=== PATIENT | female | born 1975 | race Caucasian/White ===

== ENCOUNTER 2020-08-15 09:40 | Outpatient (REF) | payer OTHER, SELFPAY ==
[2020-08-17 21:02] LABS: HPV mRNA E6/E7 rflx Not Detected (Not Detected)
== END 2020-08-15 09:41 | disposition home or self-care (01) ==
LOC: HO.LAB 09:40
PROVIDERS: PCP Family Medicine; Visit Provider Advanced Practice Midwife
DX: Z01.419 Encounter for gynecological examination (general) (routine) without abnormal findings (principal); Z11.51 Encounter for screening for human papillomavirus (HPV)
CPT/HCPCS: 36415; 87624; 88142

== ENCOUNTER 2020-10-21 08:58 | Outpatient (REF) | payer OTHER, SELFPAY | END 2020-10-21 08:59 | disposition home or self-care (01) | LOC: HO.MAMMO 08:58 | PROVIDERS: Visit Provider Advanced Practice Midwife | DX: Z13.89 Encounter for screening for other disorder (principal) ==

== ENCOUNTER 2020-11-10 13:22 | Outpatient (REF) | payer OTHER, SELFPAY ==
--- NOTE | ~2020-11-10 | MM_ITS ---
EXAMINATION: MM DIAGNOSTIC DIGITAL BREAST TOMOSYNTHESIS, BILATERAL CLINICAL INFORMATION: Probable benign calcifications posterior 1:00 right breast noted on outside imaging. Due for yearly. No known family history breast cancer. The lifetime risk of breast cancer based on the Tyrer-Cuzick Model is 7%. COMPARISON: Outside mammography 02/05/2020, 07/31/2019, 07/24/2019 (BI-RADS 0), [facility]. TECHNIQUE: Digital breast tomosynthesis is performed in both the craniocaudal and mediolateral oblique views along with computer-aided detection (CAD). Synthesized 2D images are generated from the tomosynthesis. Additional views are obtained: Right CC, magnification right CC x2, magnification right LM x2, magnification left CC, magnification left ML. FINDINGS: There are scattered areas of fibroglandular density (ACR BI-RADS breast composition Category b). Parenchymal pattern is similar to prior outside exams. There is no interval mass or developing density or architectural abnormality. The axilla and skin contours are unremarkable. There are a few scattered incidental round calcifications upper outer left breast. The right breast calcifications for follow-up posterior 1:00 position again show oval appearance on CC view and some with early layering on LM view. No increasing calcifications or pleomorphic types or ductal distribution. They are tightly grouped. Right breast calcifications will be reassessed again in 6 months. Results are provided to the patient at time of visit by the technologist. MM/MM tomosynthesis diagnostic BI IMPRESSION: 1. Right: Stable probable benign tight group calcifications posterior 1:00 position. 2. Left: No mammographic evidence of malignancy. ASSESSMENT: BI-RADS 3: Probably Benign RECOMMENDATION: Diagnostic right mammography in 6 months. This patient's information was entered into a reminder system with a target due date for their next mammogram.
== END 2020-11-10 13:23 | disposition home or self-care (01) ==
LOC: HO.MAMMO 13:22
PROVIDERS: Visit Provider Advanced Practice Midwife
DX: R92.1 Mammographic calcification found on diagnostic imaging of breast (principal)
CPT/HCPCS: 77062; 77066

== ENCOUNTER 2021-06-09 08:51 | Outpatient (REF) | payer OTHER, SELFPAY ==
--- NOTE | ~2021-06-09 | MM_ITS ---
EXAMINATION: MM DIAGNOSTIC DIGITAL BREAST TOMOSYNTHESIS, RIGHT CLINICAL INFORMATION: Follow-up probable benign tightly grouped calcifications posterior 1:00 right breast initially noted on outside imaging. The lifetime risk of breast cancer based on the Tyrer-Cuzick Model is 7%. COMPARISON: Mammography: 11/10/2020; outside mammography from [email or web address] dated 02/05/2020, 07/31/2019, 07/24/2019 (BI-RADS 0). TECHNIQUE: Digital breast tomosynthesis is performed in both the craniocaudal and mediolateral oblique views along with computer-aided detection (CAD). Synthesized 2D images are generated from the tomosynthesis. Additional right CC, magnification CC, and magnification LM views are obtained. FINDINGS: There are scattered areas of fibroglandular density (ACR BI-RADS breast composition Category b). Calcifications for follow-up posterior 1:00 position are tightly grouped and appear similar to prior diagnostic exam. There may be some layering of some calcifications on the LM view. Calcifications will be reassessed again at time of annual bilateral mammography. Remainder right breast shows no interval mass or architectural abnormality or developing density. The axilla and skin contours are unremarkable. Results are provided to the patient at time of visit by the technologist. MM/MM tomosynthesis diagnostic RT IMPRESSION: No significant change tightly grouped calcifications posterior 1:00 position. ASSESSMENT: BI-RADS 3: Probably Benign RECOMMENDATION: Diagnostic mammography at time of annual bilateral mammography, due in 6 months. This patient's information was entered into a reminder system with a target due date for their next mammogram.
== END 2021-06-09 08:52 | disposition home or self-care (01) ==
LOC: HO.MAMMO 08:51
PROVIDERS: PCP Family Medicine; Visit Provider Advanced Practice Midwife
DX: R92.1 Mammographic calcification found on diagnostic imaging of breast (principal)
CPT/HCPCS: 77061; 77065

== ENCOUNTER 2021-08-17 10:33 | Outpatient (REF) | payer OTHER, SELFPAY ==
[2021-08-18 10:30] LABS: CT PCR NOT DETECTED (Not Detect.); NG PCR NOT DETECTED (Not Detect.)
== END 2021-08-17 10:34 | disposition home or self-care (01) ==
LOC: HO.LAB 10:33
PROVIDERS: Visit Provider Advanced Practice Midwife
DX: Z01.419 Encounter for gynecological examination (general) (routine) without abnormal findings (principal); Z20.2 Contact with and (suspected) exposure to infections with a predominantly sexual mode of transmission
CPT/HCPCS: 87491; 87591

== ENCOUNTER 2022-02-07 09:30 | Outpatient (RCR) | payer OTHER, SELFPAY ==
[2022-02-08 08:22] VITALS: BP 102/65; PULSE 89
== END 2022-02-21 15:23 | disposition home or self-care (01) ==
LOC: HO.PT 09:30
PROVIDERS: PCP Family Medicine; Visit Provider Family Medicine
DX: H81.10 Benign paroxysmal vertigo, unspecified ear (principal)
CPT/HCPCS: 97162

== ENCOUNTER 2022-03-09 16:31 | Outpatient (REF) | payer MEDICARE, SELFPAY ==
--- NOTE | ~2022-03-09 | MR_ITS ---
EXAMINATION: MR BRAIN WITHOUT AND WITH CONTRAST CLINICAL INFORMATION: 47-year-old with self-reported dizziness and forgetfulness with syncope, collapse and facial tingling. COMPARISON: None. TECHNIQUE: Multiplanar, multisequence MRI of the brain was obtained before and after the intravenous administration of 6.5 mL Gadavist. FINDINGS: Brain Volume: Within normal limits within the limitations of qualitative assessment. Structural: 5 mm benign pineal cyst incidentally noted. Brain and Meninges: DWI sequence demonstrates no restricted diffusion to suggest acute or subacute cerebral ischemia. Gradient refocused imaging demonstrates no abnormal magnetic susceptibility artifact to suggest hemorrhage, hemosiderin staining or abnormal mineralization. Nino-white matter differentiation is intact. The brain is normal in morphology. Some faint punctate FLAIR signal hyperintensities are seen in the subcortical frontal white matter bilaterally which are nonspecific in addition to a 4 mm nonenhancing T2 hyperintense focus seen within the right insular cortex adjacent to the external capsule, also a nonspecific finding. Remainder the brain is normal in signal intensity. No mass lesions, pathologic intracranial enhancement, extra-axial fluid collection, space-occupying process or mass effect are identified. Ventricles and Subarachnoid Spaces: The ventricular system and subarachnoid spaces are within normal limits without hydrocephalus. Orbital Structures: Bilateral proptosis is noted, which is nonspecific. Vascular: Signal voids are noted in the visualized major intracranial vessels. Osseous Structures, Sinuses/Mastoids, Extracranial Soft Tissues: Bony structures appear intact. Nasal septal deviation to the left is noted. Incidental note is made of a 2.0 x 0.7 cm cystic focus within the cervical spinal cord at the C4 level with no definite abnormal enhancement, which is a nonspecific finding and warrants further assessment with dedicated MRI of the cervical spine without and with contrast. This has the appearance of a focal syrinx and appears to expand the spinal cord. MR/MR head/brain wo/w con IMPRESSION: 1. Scattered nonenhancing subcortical white matter T2 hyperintensities in the frontal lobes bilaterally and a nonspecific 4 mm nonenhancing T2 hyperintensity in the right insular cortex, also a nonspecific finding. Given the lack of enhancement, neoplastic disease is considered unlikely and clinical follow-up is recommended. 2. Bilateral proptosis incidentally noted. Suggest correlation with ophthalmologic examination. Incidental 5 mm benign pineal cyst. 3. A 2.0 x 0.7 cm cystic lesion or focus of syringomyelia in the spinal cord at the C4 level with no definite abnormal enhancement within the limitations of this exam. Recommend dedicated MRI of the cervical spine without and with contrast to further assess this.
== END 2022-03-09 16:32 | disposition home or self-care (01) ==
LOC: HO.MRI 16:31
PROVIDERS: Visit Provider Family Medicine
DX: R55 Syncope and collapse (principal); R41.3 Other amnesia
CPT/HCPCS: 70553; A9585

== ENCOUNTER 2022-03-26 16:29 | Outpatient (REF) | payer MEDICARE, SELFPAY ==
--- NOTE | ~2022-03-26 | MR_ITS ---
EXAMINATION: MR CERVICAL SPINE WITHOUT AND WITH CONTRAST CLINICAL INFORMATION: Syringomyelia of the neck. COMPARISON: No relevant prior imaging. TECHNIQUE: Multiplanar MR imaging of the cervical spine was performed without and with contrast. A total of 6.5 mL Gadavist was utilized for this examination. FINDINGS: There is a well marginated ovoid focus of intramedullary fluid signal within the upper cervical spinal cord centered at the level of C4 measuring up to 0.8 cm in maximal diameter and 2.1 cm in maximal length. No associated pathological intramedullary enhancement is demonstrated on postcontrast images. 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 The remainder of the visualized cord signal intensity is normal. The cervicomedullary junction and limited visualization of intracranial anatomy reveals no abnormal finding. Axilla condyles and lateral C1 masses are intact. Atlantodental joint and both C1-C2 to facets are unremarkable. At C2-C3 the annular contour is normal. No canal or neuroforaminal compromise. At C3-C4 the annular contour is normal. No canal or neuroforaminal compromise. At C4-C5 the annular contour is normal. No canal or neuroforaminal compromise. At C5-C6 there is a slightly bulging disc. No canal stenosis. No substantial neuroforaminal encroachment. At C6-C7 there is a slightly bulging disc. No canal stenosis. No substantial neuroforaminal encroachment. At C7-T1 the annular contour is normal. No canal stenosis. No neuroforaminal encroachment. Visualized soft tissues of the neck are normal. Vascular flow voids are maintained. MR/MR cervical spine wo/w con IMPRESSION: There is a well marginated nonenhancing ovoid intramedullary cystic lesion within the cervical spinal cord consistent with a syrinx that measures up to 2.1 cm in maximal length and 0.8 cm in diameter.
== END 2022-03-26 16:30 | disposition home or self-care (01) ==
LOC: HO.MRI 16:29
PROVIDERS: Visit Provider Family Medicine
DX: G95.0 Syringomyelia and syringobulbia (principal)
CPT/HCPCS: 72156; A9585

== ENCOUNTER 2022-04-15 16:59 | Emergency (ER) | payer MEDICARE, SELFPAY ==
--- NOTE | ~2022-04-15 | XR_ITS ---
EXAMINATION: XR LUMBOSACRAL SPINE CLINICAL INFORMATION: Low back pain COMPARISON: None TECHNIQUE: Three views of the lumbosacral spine. FINDINGS: The vertebral bodies and posterior elements are normal. The disc spaces are preserved and the vertebral alignment is normal. IUD seen in the pelvis. Cholecystectomy clips in the right upper quadrant. XR/XR lumbar spine 2-3V IMPRESSION: No acute osseous abnormality of the lumbar spine.
--- NOTE | 2022-04-15 17:44 | ED_ITS ---
HPI - General Adult General Chief complaint: Back Pain/Injury Stated complaint: pain into legs Time Seen by Provider: 04/15/22 19:28 Source: patient Mode of arrival: ambulatory Limitations: no limitations History of Present Illness HPI narrative: Patient is a 47 year old assigned female at with a history of cervical spine impingement presenting to the emergency department today with low back percy n that radiates into the legs. Patient states that over the last few days she has felt worsening low back pain that radiates into her legs. Patient states that she has an appointment with a neurosurgeon for her neck in a few days. Patient denies any dizziness, lightheadedness, abdominal pain, nausea, vomiting, fever, chills, blurry vision, double vision, loss of vision, chest pain, difficulty breathing, shortness of breath, night sweats, pain with urination, increased urinary frequency, increased urinary urgency, blood in her urine or stool, syncope or a near syncopal episode, recent trauma or falls, bowel incontinence, bladder incontinence, bowel retention, bladder retention, or any other complaints at this time. Onset (ago): day(s) Location: back Radiation: extremity Severity scale (1-10): 3 Quality: aching and dull Pain Consistency: constant Relieving factors: none Exacerbating factors: none Associated symptoms: denies other symptoms Treatments prior to arrival: none Related Data Home Medications Medication Instructions Recorded Confirmed fluoxetine 40 mg capsule mg PO 08/15/20 lurasidone 80 mg tablet 80 mg PO BEDTIME 08/15/20 prazosin 5 mg capsule 5 mg PO BEDTIME 08/15/20 Previous Rx's Medication Instructions Recorded cyclobenzaprine 5 mg tablet 5 mg PO TID PRN muscle spasm 7 04/15/22 days #21 tabs prednisone 20 mg tablet 20 mg PO DAILY 7 days #7 tabs 04/15/22 Allergies Allergy/AdvReac Type Severity Reaction Status Date / Time No Known Allergies Allergy Verified 08/17/21 10:39 [No Known Allergies*] Review of Systems Constitutional: Constitutional: Reports no additional constitutional complaints, Denies chills, Denies fever(s) and Denies night sweats Eyes: Eyes: Reports no additional eye complaints, Denies blurry vision, Denies change in vision, Denies diplopia, Denies eye discharge, Denies loss of vision and Denies eye pain ENT: Denies dizziness Cardiovascular: Cardiovascular: Reports no additional cardiovascular complaints, Denies chest pain, Denies lightheadedness, Denies Loss of Consciousness and Denies dyspnea Respiratory: Respiratory: Reports no additional respiratory complaints and Denies dyspnea Gastrointestinal: Gastrointestinal: Reports no additional gastrointestinal complaints, Denies abdominal pain, Denies melena, Denies hematochezia, Denies change in bowel habits and Denies change in stool character Genitourinary: Genitourinary: Denies hematuria, Denies urinary frequency, Denies dysuria, Denies urinary incontinence, Denies urinary hesitancy and Denies urinary urgency Musculoskeletal: Musculoskeletal: Reports no additional musculoskeletal complaints, Reports back pain, Denies numbness and Denies tingling Neurologic: Denies dizziness, Denies loss of vision, Denies numbness and Denies tingling Psychiatric: Psychiatric: Reports no additional psychiatric complaints Endocrine: Endocrine: Reports no additional endocrine complaints Hematologic/Lymphatic: Hematologic/Lymphatic: Reports no additional hematologic/lymphatic complaints Allergic/Immunologic: Allergic/Immunologic: Reports no additional allergic/immunologic complaints PMFSH Past Medical History Attestation statement: The following information was validated with the patient. Source: old records reviewed Medical History Bipolar 1 disorder History of depression Night terror Post traumatic stress disorder (PTSD) Surgical History H/O ovarian cystectomy Hx of cholecystectomy Social History Social History Alcohol intake: never Patient Tobacco Use Status: Never used Tobacco Advance Directives: No Advance Directives Information Provided: No Physical Exam ED Vital Signs: Vital Signs - 24 hr 04/15/22 17:46 Temperature 97.5 F Pulse Rate 85 Respiratory Rate 18 Blood Pressure 131/61 Pulse Oximetry 98 Oxygen Delivery Method Room Air BMI result Body Mass Index 25.6 Const General: cooperative, no acute distress, alert and awake Nutritional Appearance: well nourished Orientation/consciousness: patient oriented x3 Limitations: no limitations HENMT Head: Yes normal to inspection and Yes atraumatic Ears: hearing grossly normal bilaterally and external ears normal General nose exam: Normal external nose present, no nasal discharge noted and no epistaxis Face and sinus: Yes normal facial exam, No abrasion and No laceration Mouth: Normal oral and palatal mucosa present, no drooling and no muffled voice Eyes General: appearance normal, both eyes and all related structures Periorbital: periorbital findings normal Eyelids: Yes eyelids normal Conjunctivae: conjunctivae normal Pupils: Equal, round and reactive pupils present EOM: EOMs intact bilaterally Neck Neck: Yes normal visual inspection, Yes full ROM and Yes no lymphadenopathy Chest Chest palpation & inspection: normal inspection of the chest Resp Effort & Inspection: normal respiratory effort and able to speak in complete sentences Auscultation: clear to auscultation bilaterally Cardio Rate: regular rate Rhythm: regular rhythm GI Inspection: Yes normal to inspection General: Yes no CVA tenderness Back/Spine/Pelvis Back: no CVA tenderness Cervical Spine: normal cervical lordosis and cervical ROM normal Thoracic/Lumbar Spine: thoracic and lumbar spine normal to inspection Pelvis: no pain with anterior-posterior compression Neuro General: patient oriented x3 and moves all extremities Cranial nerves: Yes Equal, round and reactive pupils present Cognition (Neuro): normal cognition Motor exam (neuro): 5/5 motor strength present throughout Sensory Exam: Normal double simultaneous stimulation for sensation Coordination: [id number] test normal Extrem General: Yes normal to inspection, Yes full ROM and Yes capillary refill normal Psych Appearance: grossly normal Mental Status: mental status grossly normal Affect: normal affect Attitude: cooperative Thought process: Normal thought process present Thought content: Normal thought content present Insight: Good insight present (Psych) Course Course Course Narrative: RME performed by Tammi Jolly PA-C. Patient is a 47 year old female presenting to the emergency department with low back pain that radiates into her legs. Patient states that she has a neurosurgery appointment for C-Spine issues but has never had any evaluation for low back pain. Lumbar XR ordered. Medications Administered Discontinued Medications Generic Name Dose Route Start Last Admin Trade Name Freq PRN Reason Stop Dose Admin Cyclobenzaprine HCl 5 mg 04/15/22 19:28 04/15/22 19:32 Cyclobenzaprine Hcl 5 Mg Tablet PO 04/15/22 19:29 5 mg ONCE ONE Administration Ketorolac Tromethamine 15 mg 04/15/22 19:28 04/15/22 19:32 Ketorolac Tromethamine 15 Mg/Ml Vial IM 04/15/22 19:29 15 mg ONCE ONE Administration Medical Decision Making [facility] Narrative Medical decision making narrative: Patient is a 47 year old assigned female at with a history of cervical impingement presenting to the emergency department today with low back pain. Patient's physical exam was unremarkable. Patient's lumbar spine x-ray showed no acute process. I explained my physical exam findings as well as all test results to the patient. I answered all questions asked by the patient. Patient received PO Flexeril and IM Toradol which she stated helped her symptoms significantly. I stressed the importance of the patient taking her medication as prescribed. I stressed the importance of the patient following up with her primary care provider and a neurosurgeon. I stressed the importance of the patient returning to the emergency department immediately if her symptoms were to worsen or if she were to develop any dizziness, shortness of breath, difficulty breathing, chest pain, blurry vision, loss of vision, nausea, vomiting, abdominal pain, fever, chills, back pain, or any other complaints. Patient verbalized agreement and understanding with this treatment plan and discharge. Medical Records Medical records reviewed: Yes I reviewed the patient's medical records. Imaging Data Lumbar x-ray: Attestation: I personally reviewed and interpreted this imaging study as follows: My impression: No acute process. Radiologist's impression: EXAMINATION: XR LUMBOSACRAL SPINE CLINICAL INFORMATION: Low back pain COMPARISON: None TECHNIQUE: Three views of the lumbosacral spine. FINDINGS: The vertebral bodies and posterior elements are normal. The disc spaces are preserved and the vertebral alignment is normal. IUD seen in the pelvis. Cholecystectomy clips in the right upper quadrant. XR/XR lumbar spine 2-3V IMPRESSION: No acute osseous abnormality of the lumbar spine. Dictated By: Emiliano Kendrick MD Signed By: Electronically signed by Emiliano Kendrick MD 04/15/22 2115 Discharge Plan Discharge Clinical Impression: Low back pain Patient Disposition: Home, Self-Care Instructions: Back Pain (ED) Additional Instructions: Follow up with your primary care provider and your neurosurgeon. Return to the emergency department immediately if your symptoms worsen or if you develop any dizziness, shortness of breath, difficulty breathing, chest pain, blurry vision, loss of vision, nausea, vomiting, abdominal pain, fever, chills, back pain, or any other complaints. Prescriptions: New cyclobenzaprine 5 mg tablet 5 mg PO TID PRN (Reason: muscle spasm) 7 Days Qty: 21 0RF prednisone 20 mg tablet 20 mg PO DAILY 7 Days Qty: 7 0RF No Action Latuda 80 mg tablet 80 mg PO BEDTIME fluoxetine 40 mg capsule PO prazosin 5 mg capsule 5 mg PO BEDTIME Referrals: [facility] [place]] (Call to establish and follow up with a primary care provider. If you already have a primary care provider, please follow up with them. ) [facility] [Provider Group] (Call to establish and follow up with a primary care provider. If you already have a primary care provider, please follow up with them. ) [facility] [Provider Group] (Call to establish and follow up with a primary care provider. If you already have a primary care provider, please follow up with them. ) Interventions: ED Discharge Assessment Last Done: 04/15/22 19:41 Discharge Date/Time: 04/15/22 19:56 Print Language: Hungarian
[2022-04-15 17:46] VITALS: BP 131/61; PULSE 85; RESP 18; TEMP 36.4; O2SAT 98; BMI 25.6
[2022-04-15] MEDS: Cyclobenzaprine HCl 5 MG TABLET PO (19:32)
[2022-04-15] MEDS: Ketorolac Tromethamine 15 MG/ML VIAL IM (19:32)
== END 2022-04-15 19:56 | disposition home or self-care (01) ==
PROVIDERS: Emergency Provider Internal Medicine
DX: M54.50 Low back pain, unspecified (principal)
CPT/HCPCS: 72100; 96372; 99282; 99283; 99284; J1885

== ENCOUNTER 2022-05-01 18:52 | Outpatient (REF) | payer MEDICARE, SELFPAY ==
--- NOTE | ~2022-05-01 | MR_ITS ---
EXAMINATION: MR LUMBAR SPINE WITHOUT CONTRAST CLINICAL INFORMATION: Syrinx. COMPARISON: Lumbar spine radiographs 04/15/2022. TECHNIQUE: MRI of the lumbar spine was obtained using routine sequences without contrast. FINDINGS: Alignment is normal. Vertebral body heights are preserved. No acute bone marrow signal changes. There is slight loss of intervertebral height and T2 signal intensity at multiple levels related to disc degeneration. The tip of the conus medullaris is located at L2. No mass effect on the conus. Visualized distal cord signal intensity is normal. At L1-L2 there is a slightly bulging disc. No canal stenosis. No mass effect on the traversing or foraminal nerve roots. At L2-L3 the annular contour is normal. No canal or neuroforaminal compromise. At L3-L4 the annular contour is normal. No canal or neuroforaminal compromise. At L4-L5 there is a slightly bulging disc. Bilateral facet degenerative change. No canal stenosis. No mass effect on the traversing or foraminal nerve roots. At L5-S1 there is a slightly bulging disc. Bilateral facet degenerative change. No canal stenosis. No mass effect on the traversing or foraminal nerve roots. Limited visualization of the retroperitoneal anatomy reveals no abnormal finding. Psoas and paraspinal superficial symmetric. MR/MR lumbar spine wo con IMPRESSION: There is disc degeneration at multiple levels within the lumbar spine. No canal stenosis. No mass effect on the traversing or foraminal nerve roots. Visualized distal cord signal intensity is normal.
== END 2022-05-01 18:53 | disposition home or self-care (01) ==
LOC: HO.MRI 18:52
PROVIDERS: Visit Provider Neurological Surgery
DX: G95.0 Syringomyelia and syringobulbia (principal)
CPT/HCPCS: 72148

== ENCOUNTER 2022-08-09 13:41 | Outpatient (REF) | payer MEDICARE, SELFPAY ==
[2022-08-09 15:15] LABS: T4 Thyroxine 8.1 ug/dL (4.5-12.0)
[2022-08-16 19:49] LABS: Thyrotropin Receptor Antibody <1.00 IU/L (<=2.00)
[2022-08-22 21:33] LABS: Acetylcholine Receptor Binding <0.30 nmol/L
[2022-08-23 18:44] LABS: Acetylcholine Recep Modulating 18
== END 2022-08-09 13:42 | disposition home or self-care (01) ==
LOC: HO.LAB 13:41
PROVIDERS: Visit Provider Psychiatry & Neurology Neurology
DX: R55 Syncope and collapse (principal); G95.0 Syringomyelia and syringobulbia; E03.9 Hypothyroidism, unspecified
CPT/HCPCS: 36415; 82550; 83519; 83520; 84436

== ENCOUNTER 2022-08-21 08:55 | Outpatient (REF) | payer MEDICARE, SELFPAY ==
--- NOTE | ~2022-08-21 | MM_ITS ---
EXAMINATION: MM DIAGNOSTIC DIGITAL BREAST TOMOSYNTHESIS, BILATERAL CLINICAL INFORMATION: Due for yearly. Also follow-up grouped calcifications posterior 1:00 right breast initially noted on outside imaging. The lifetime risk of breast cancer based on the Tyrer-Cuzick Model is 7%. COMPARISON: Mammography: 06/09/2021, 11/10/2020; outside mammography from [facility] dated 02/05/2020, 07/31/2019, 07/24/2019 (BI-RADS 0). TECHNIQUE: Digital breast tomosynthesis is performed in both the craniocaudal and mediolateral oblique views along with computer-aided detection (CAD). Synthesized 2D images are generated from the tomosynthesis. Additional magnification right CC x2 and magnification LM views are obtained. FINDINGS: There are scattered areas of fibroglandular density (ACR BI-RADS breast composition Category b). Parenchymal pattern is similar to prior studies and there is no significant mass or developing density or architectural abnormality. There are punctate densities overlying the skin left axilla consistent with deodorant artifact. No abnormal left breast calcifications. The bilateral skin contours the axilla are unremarkable. The right breast calcifications for follow-up posterior 12:30 position are tightly grouped and show increased number from prior diagnostic exams. The calcifications vary in size. This may be benign fibrocystic changes. However, given the interval change from prior diagnostic exams, stereotactic sampling is recommended to confirm benignity. Results are discussed with the patient at time of visit. MM/MM tomosynthesis diagnostic BI IMPRESSION: Right: -Tightly grouped calcifications posterior 12:30 increased in number. Left: -No mammographic evidence of malignancy. ASSESSMENT: BI-RADS 4: Suspicious (subcategory 4A: Low suspicion for malignancy) RECOMMENDATION: Stereotactic sampling right breast calcifications. This patient's information was entered into a reminder system with a target due date for their next mammogram.
== END 2022-08-21 08:56 | disposition home or self-care (01) ==
LOC: HO.MAMMO 08:55
PROVIDERS: PCP Family Medicine; Visit Provider Advanced Practice Midwife
DX: R92.1 Mammographic calcification found on diagnostic imaging of breast (principal)
CPT/HCPCS: 77062; 77066

== ENCOUNTER 2022-08-28 08:49 | Outpatient (REF) | payer MEDICARE, SELFPAY ==
--- NOTE | ~2022-08-28 | MM_ITS ---
EXAMINATION: STEREOTACTIC TOMOSYNTHESIS-GUIDED VACUUM-ASSISTED BREAST BIOPSY, RIGHT SPECIMEN RADIOGRAPH, RIGHT POST PROCEDURE DIGITAL MAMMOGRAM, RIGHT CLINICAL INFORMATION: Tightly grouped calcifications posterior 1230 for sampling.. COMPARISON: Prior mammography, most recent 08/21/2022. TECHNIQUE/PROCEDURE: Informed consent was obtained from the patient after discussion of the benefits, risks, and alternatives to biopsy today. Patient appeared to understand. Gave opportunity for questions. Patient signed consent form. BIOPSY TABLE: [employer] Aff[employer] Prone Biopsy System. LESION: Tightly grouped calcifications which vary in size posterior 12:30 right breast. LOCAL ANESTHESIA: 10 mL carbonated 1% lidocaine; 10 mL 2% lidocaine with epinephrine. DERMATOTOMY: Single skin chris dermatotomy performed. NEEDLE: Websand Eviva 9-gauge vacuum assisted core biopsy device. APPROACH: Craniocaudal. TARGETING: Combination of digital breast tomosynthesis and stereotactic digital mammography used for targeting. CORES: 9. CLIP: Websand SecurMark Cylinder-shaped marker. SPECIMEN RADIOGRAPH: Specimen radiograph is taken in separate room using digital mammography. There are multiple calcifications in the cores. POST PROCEDURE UNILATERAL DIGITAL MAMMOGRAM: The post biopsy mammogram is performed in separate room using separate digital mammography equipment from the biopsy procedure. CC and ML views are obtained. There are scattered areas of fibroglandular density (breast composition category: b). The clip marker is in position. The calcifications are markedly decreased at the biopsy site and no longer clearly visualized. No significant hematoma appreciated. The patient tolerated the procedure well. No immediate complications. Home instructions reviewed with the patient. Final pathology results are pending. MM/MM stereotactic biopsy RT IMPRESSION: 1. Digital tomosynthesis-guided core biopsy right breast with clip placement. 2. Specimen radiograph taken and post procedure mammogram. There is satisfactory positioning of the biopsy clip. 3. Final pathology results pending. An addendum report will be issued.
[2022-08-28] MEDS: Lidocaine HCl 1 % 20 ML VIAL 10 ML SUBCUT (10:11)
[2022-08-28] MEDS: Sodium Bicarbonate 8.4% 50 MEQ/50 ML VIAL SUBCUT (10:14)
== END 2022-08-28 08:50 | disposition home or self-care (01) ==
LOC: HO.MAMMO 08:49
PROVIDERS: Visit Provider Surgery
DX: R92.8 Other abnormal and inconclusive findings on diagnostic imaging of breast (principal)
CPT/HCPCS: 19081; 88305; 99202; A4648

== ENCOUNTER 2023-01-17 13:44 | Outpatient (REF) | payer OTHER, SELFPAY ==
--- NOTE | ~2023-01-17 | MM_ITS ---
EXAMINATION: MM DIAGNOSTIC DIGITAL BREAST TOMOSYNTHESIS, RIGHT US BREAST LIMITED, RIGHT MAMMOGRAPHY: CLINICAL INFORMATION: 47-year-old female complaining of palpable focus of concern within the upper outer right breast anterior one third. COMPARISON: Mammography: 08/21/2022, 06/09/2021, and 11/10/2020. Dating back to 07/24/2019. History of recent benign right breast biopsy 08/28/2022. TECHNIQUE: Digital breast tomosynthesis is performed in both the craniocaudal and mediolateral oblique views along with computer-aided detection (CAD). Synthesized 2D images are generated from the tomosynthesis. In addition to standard views, 3-D spot compression views were performed in the right MLO and right CC projections. A full-field right 3-D mediolateral view was also performed. FINDINGS: There are scattered areas of fibroglandular density (ACR BI-RADS breast composition Category b). There is a post benign biopsy clip present in the right breast at the approximate 4:00 location, mid to posterior one third. Majority of the calcifications were sampled and removed. In the region of palpable concern marked by the technologist, there is no underlying mass or distortion or other mammographic abnormality. No correlate is seen on mammography. ULTRASOUND: CLINICAL INFORMATION: 47-year-old female complaining of palpable focus of concern within the upper outer right breast anterior one third. COMPARISON: None relevant. TECHNIQUE: Targeted sonographic evaluation was performed using a high frequency linear transducer, with attention to the palpable focus of concern right breast 10:00 axis approximately 5 cm from the nipple, as indicated by the patient. Selected archived documentation. FINDINGS: RIGHT BREAST: There is a mixture of fatty and fibroglandular tissue. No suspicious mass is seen. There is no pathologic acoustic shadowing. There is a prominent ridge of dense fibroglandular tissue in the 10:00 axis, 5 cm from the nipple, which appears to correlate with the palpable focus of concern. This is benign. In addition, there is a tiny simple cyst at the 10:00 axis just lateral to the palpable focus. This is likely incidental and does not appear to correlate with the palpable focus. MM/MM tomosynthesis diagnostic RT IMPRESSION: No findings suspicious for malignancy within the right breast. Palpable focus of concern at the 10:00 axis appears related to a prominent ridge of normal dense fibroglandular tissue. Otherwise, stable benign findings related to prior right breast benign biopsy. Recommend the patient resume routine annual screening. OVERALL ASSESSMENT: Mammography: BI-RADS 2 - Benign Findings Ultrasound: BI-RADS 2 - Benign Findings RECOMMENDATION: 1 year F/U Results were provided to the patient at time of visit by the technologist. This patient's information was entered into a reminder system with a target due date for their next mammogram.
== END 2023-01-17 13:45 | disposition home or self-care (01) ==
LOC: HO.MAMMO 13:44
PROVIDERS: PCP Registered Nurse; Visit Provider Registered Nurse
DX: N63.41 Unspecified lump in right breast, subareolar (principal)
CPT/HCPCS: 76642; 77061; 77065

== ENCOUNTER → 2023-01-17 14:00 | Outpatient (BNV) | payer OTHER, SELFPAY | PROVIDERS: PCP Registered Nurse; Visit Provider Radiology Diagnostic Radiology | DX: N63.11 Unspecified lump in the right breast, upper outer quadrant (principal) | CPT/HCPCS: 76642; 77061; 77065; G0279 ==

== ENCOUNTER 2023-03-12 14:38 | Outpatient (REF) | payer OTHER, SELFPAY ==
[2023-03-12 17:03] LABS: Free T4 (Free Thyroxine) 0.84 ng/dL (0.71-1.85); T4 Thyroxine 7.1 ug/dL (4.5-12.0); TSH reflex Free T4 1.53 uIU/mL (0.32-4.0); Thyroid Stimulating Hormone 1.53 uIU/mL (0.32-4.0)
[2023-03-14 04:39] LABS: Triiodothyronine T3 Free 2.6 pg/mL (2.3-4.2)
[2023-03-19 19:09] LABS: Acetylcholine Receptor Binding <0.30 nmol/L
[2023-03-19 19:49] LABS: Acetylcholine Recept. Blocking <15 (<15)
[2023-03-20 17:24] LABS: Acetylcholine Recep Modulating 28
== END 2023-03-12 14:39 | disposition home or self-care (01) ==
LOC: HO.HHCL 14:38
PROVIDERS: Visit Provider Optometrist
DX: H53.2 Diplopia (principal)
CPT/HCPCS: 36415; 83519; 84436; 84439; 84443; 84481

== ENCOUNTER 2023-08-16 08:44 | Outpatient (REF) | payer OTHER, SELFPAY ==
[2023-08-16 11:47] LABS: Hematocrit 43.2 % (37.0-47.0); Hemoglobin 14.2 g/dl (12.0-16.0); Mean Corpuscular HGB Conc 32.9 g/dl (31.0-35.0); Mean Corpuscular Hemoglobin 29.6 pg (27.0-33.0); Mean Corpuscular Volume 90.2 fL (80.0-98.0); Mean Platelet Volume 11.2 fL (9.4-12.3); Platelet Count 280 X10*3/uL (160-400); Red Blood Count 4.79 X10*6/uL (4.20-5.50); Red Cell Distribution Width 13.2 % (11.0-16.0)
[2023-08-16 12:00] LABS: Estimated Average Glucose 100 mg/dL; Hemoglobin A1c % 5.1 % (<6.0)
[2023-08-16 12:09] LABS: Alanine Aminotransferase 9 U/L (0-31); Alkaline Phosphatase 58 U/L (39-117); Anion Gap 10 (12-20); Aspartate Amino Transferase 14 U/L (5-31); Bilirubin Total 0.4 mg/dL (0.0-1.0); Blood Urea Nitrogen 12 mg/dL (9-16); Carbon Dioxide 27 mmol/L (22-29); Chloride 107 mmol/L (96-108); Cholesterol 146 mg/dL (<200); Estimated Glomerular Filt Rate > 60; Glucose Random 93 mg/dL (60-115); HDL Cholesterol 47 mg/dL (>40); LDL Cholesterol Calculated 87 mg/dL (<100); Potassium 4.1 mmol/L (3.3-5.1); Sodium 140 mmol/L (135-145); Total Protein 7.5 g/dL (6.5-8.0); Triglycerides 60 mg/dL (<150)
[2023-08-16 12:19] LABS: HBc Num1 0.08 S/CO (0.00-0.79); HBsAGNum1 0.34 S/CO (0.00-0.99); HIV AB/AG Nonreactive (Nonreactive); HIV Num 1 0.07 S/CO (0.00-0.99); Hepatitis B Core Antibody Nonreactive (Nonreactive); Hepatitis B Surface Antigen Negative (Negative); Syphilis Screen Nonreactive (Nonreactive); ~Hepatitis B Surface Antibody NONREACTIVE (Nonreactive); ~Hepatitis C Antibody Nonreactive (Nonreactive)
[2023-08-16 12:26] LABS: TSH reflex Free T4 2.19 uIU/mL (0.32-4.0)
[2023-08-16 14:34] LABS: CT PCR NOT DETECTED (Not Detect.); NG PCR NOT DETECTED (Not Detect.)
[2023-08-18 22:09] LABS: TS Negative Control Passed; TS Panel A 1; TS Panel B 0; TS Positive Control Passed; TSpotTB Negative (Negative)
[2023-08-19 23:03] LABS: Rubella IgG Antibody 4.66 Index
== END 2023-08-16 08:45 | disposition home or self-care (01) ==
LOC: HO.HHCL 08:44
PROVIDERS: Visit Provider Student in an Organized Health Care Education/Training Program
DX: Z00.00 Encounter for general adult medical examination without abnormal findings (principal); Z11.4 Encounter for screening for human immunodeficiency virus [HIV]; Z11.1 Encounter for screening for respiratory tuberculosis; Z13.6 Encounter for screening for cardiovascular disorders; Z20.2 Contact with and (suspected) exposure to infections with a predominantly sexual mode of transmission
CPT/HCPCS: 0353U; 36415; 80053; 80061; 83036; 84443; 85027; 86481; 86704; 86706; 86735; 86762; 86765; 86780; 86787; 86803; 87340; 87389

== ENCOUNTER → 2023-12-18 13:20 | Outpatient (BNVA) | payer SELFPAY | PROVIDERS: PCP Registered Nurse | DX: Z02.0 Encounter for examination for admission to educational institution (principal) ==

== ENCOUNTER → 2023-12-19 16:04 | Outpatient (BNVA) | payer SELFPAY | PROVIDERS: PCP Registered Nurse | DX: Z02.83 Encounter for blood-alcohol and blood-drug test (principal) ==

== ENCOUNTER 2024-01-17 15:14 | Outpatient (REF) | payer OTHER, SELFPAY ==
--- NOTE | ~2024-01-17 | MR_ITS ---
EXAMINATION: MR ORBITS WITHOUT AND WITH CONTRAST CLINICAL INFORMATION: Double vision. Exotropia myopia. COMPARISON: None available. TECHNIQUE: MRI of the orbits was obtained using routine sequences without and following the administration of 6.5 mL of Gadavist intravenous contrast. FINDINGS: No demonstrated abnormalities of the orbits. No significant preseptal or retrobulbar edema. Normal appearance of the globes. Normal symmetric appearance of the extraocular musculature. No abnormalities of the intraconal or extraconal adipose tissue. Normal appearance of the optic nerves and their sheaths. Normal appearance of the lacrimal glands. No orbital fluid collections. No abnormalities of the orbital apices. Normal appearance of the optic chiasm. Normal appearance of the pituitary gland and infundibulum. Normal appearance of the cavernous sinuses without abnormal filling defects. No demonstrated abnormalities of the intracranial internal carotid or anterior cerebral arteries. No abnormal intracranial enhancement nor restricted diffusion. The visualized premaxillary, retromaxillary, pterygopalatine fossa, and temporal fossa adipose tissue is maintained. Normal, homogeneous marrow signal. Mild mucosal thickening of the paranasal sinuses. Mild leftward nasal septal deviation. No signal abnormalities within the mastoids. MR/MR orbits face neck wo/w con IMPRESSION: No MRI abnormalities of the orbits to explain the patient's symptoms. Electronically signed by: Adriel Mcneil DO 01/23/2024 02:35 PM EDT
[2024-01-17] MEDS: gadobutroL 7.5 ML VIAL IVPUSH (16:15)
== END 2024-01-17 15:15 | disposition home or self-care (01) ==
LOC: HO.MRI 15:14
PROVIDERS: PCP Internal Medicine; Visit Provider Ophthalmology
DX: H50.00 Unspecified esotropia (principal); H52.13 Myopia, bilateral
CPT/HCPCS: 70543; A9585

== ENCOUNTER 2024-02-19 08:24 | Day surgery (SDC) | payer MEDICARE, MEDICAID, SELFPAY ==
[2024-02-17 11:34] VITALS: BMI 27.8
--- NOTE | 2024-02-18 09:42 | HO.ANESPROP2 ---
Documented by User: Anh Ruvalcaba NP 02/18/24 09:43 HPI - Anesthesia Eval Consult details Narrative: 48yo F for Bilateral Medial Rectus Eye Muscle Recession Medically optimized PMF Active Problems Active Problems: All Active Problems Abnormal mammogram of right breast (Acute) Encounter for annual routine gynecological examination (Acute) Past Medical History Medical History (Updated 02/14/24 @ 16:31 by Jessica hWite, RN) Diplopia Syringomyelia Insomnia Generalized anxiety disorder Opioid use disorder in remission Calcification of right breast on mammography Bipolar 2 disorder Overweight Dizziness Night terror History of depression Post traumatic stress disorder (PTSD) Surgical History Surgical History H/O ovarian cystectomy Hx of cholecystectomy Social History Social History Alcohol intake: never Patient Tobacco Use Status: Never used Tobacco Use of substances other than those prescribed or required for medical reasons: No Are you DNR?: No Advance Directives: No Advance Directives Information Provided: Yes Meds Allergies Allergy/AdvReac Type Severity Reaction Status Date / Time No Known Allergies Allergy Verified 08/28/22 08:23 [No Known Allergies*] Home Medications ?Medication ?Instructions ?Recorded ?Confirmed ?Last Taken ?Type No Known Home Meds 02/19/24 02/19/24 Unknown History Exam Height,Weight and Vital Signs: Height 5 ft 2 in Weight 68.946 kg Assessment and Plan Assessment Anesthesia Assessment: Chart Reviewed Documented by User: Agueda Boogie MD 02/19/24 10:47 PMFSH Past Medical History Medical History (Updated 02/14/24 @ 16:31 by Jessica White RN) Diplopia Syringomyelia Insomnia Generalized anxiety disorder Opioid use disorder in remission Calcification of right breast on mammography Bipolar 2 disorder Overweight Dizziness Night terror History of depression Post traumatic stress disorder (PTSD) Family History Family history of problems with anesthesia: No Surgical History Surgical History H/O ovarian cystectomy Hx of cholecystectomy History of Problems with Anesthesia: No Social History Social History Alcohol intake: never Patient Tobacco Use Status: Never used Tobacco Use of substances other than those prescribed or required for medical reasons: No Are you DNR?: No Advance Directives: No Advance Directives Information Provided: Yes Meds Allergies Allergy/AdvReac Type Severity Reaction Status Date / Time No Known Allergies Allergy Verified 08/28/22 08:23 [No Known Allergies*] Home Medications ?Medication ?Instructions ?Recorded ?Confirmed ?Last Taken ?Type No Known Home Meds 02/19/24 02/19/24 Unknown History Exam Airway Mallampati Class: II TM Dist: >3cm Neck ROM: Full Heart: rrr Lungs: cta Assessment and Plan Assessment Anesthesia Assessment: Anesthesia Plan Discussed Final Anesthetic Review Family History of Problems with Anesthesia: No History of Problems with Anesthesia: No NPO: Yes ASA Class: II Final Preanesthetic Review: No Changes in Pt Med Stat, Meds/Allgs Chart Reviewed and Consent Obtained/Reviewed Patient Risk: Low Procedure Risk: Low Anesthetic Plan Anesthetic Plan: GA Disposition: Standard PACU
[2024-02-19] VITALS (9 sets, daily range): BP systolic 105–125; BP diastolic 54–73; PULSE 66–106; RESP 16; TEMP 36.3–37.2; O2SAT 96–100; BMI 27.6
[2024-02-19 09:05] LABS: UPreg QC Valid YES; Urine Pregnancy NEGATIVE (NEGATIVE)
[2024-02-19] MEDS: Lactated Ringers 1,000 ML 100 ML IVCONT (09:25)
[2024-02-19] MEDS: Acetaminophen 1,000 MG/100 ML PIGGYBACK 400 MG IV (12:35)
--- NOTE | 2024-02-19 13:22 | HO.OPHTHAL ---
Ophthalmology Operative Note Date of Service: 02/19/24 Narrative: Diagnosis esotropia. Procedure bilateral medial rectus recessions of [address] Pepper. Anesthesia general. Complications none. The patient was brought to the operative room placed under general anesthesia. The eyes were prepped and draped in the usual sterile ophthalmic fashion. A lid speculum was placed in the right eye and a peritomy was created around the medial rectus muscle. The muscle was hooked and secured with a double-armed Vicryl suture. It was disinserted and reattached to a position 5 mm behind the original insertion. Conjunctiva was closed with interrupted Vicryl sutures. An identical procedure was then performed in the left eye. The patient was then awoken from general anesthesia and discharged to postoperative recovery in good condition.
== END 2024-02-19 13:33 | disposition home or self-care (01) ==
PROVIDERS: Nurse Practitioner; PCP Internal Medicine; Visit Provider Ophthalmology
PROC: (CPT 67311; principal; 2024-02-19 10:30)
DX: H53.2 Diplopia (principal); F31.81 Bipolar II disorder; F43.10 Post-traumatic stress disorder, unspecified; F11.91 Opioid use, unspecified, in remission; R42 Dizziness and giddiness; G95.0 Syringomyelia and syringobulbia
CPT/HCPCS: 67311; 81025; J0131; J0461; J1100; J1596; J1885; J2003; J2250; J2405; J2704; J3010

== ENCOUNTER 2024-07-27 14:39 | Outpatient (REF) | payer MEDICARE, SELFPAY ==
--- OUTSIDE RECORDS SUMMARY | 2024-07-27 16:48 | XMS_ITS | Encounter Summary ---
Author Organization [employer] Address [address] [place] [address] Care Team Providers Care Surveillance Investigator Name Role Phone Em Lemus MD Primary Care Pro vider Encounter Details Date Type Department Care Team (Late st Contact Info) Description 07/27/2024 Orders Only [facility] [address] [place] [address] Amanda Starr LPN Screening examination for pulmonary tuberculosis (Primary Dx) Social History Tobacco Use Types Packs/Day Years Used Date Smoking Tobacco: Former Cigarettes 1 33 1 985 - 2017 Smokeless Tobacco: Never Comments:Started smoking 14 y until 43 y of age -20 cig a day for aprox 30 y --PQT a year calc 30 Alcohol Use Standard Drinks/Week Comments Not Currently 0 (1 standard drink = 0.6 oz pure alcohol) Quit 7 years ago, hx of heavy drinking wine,to hard alcohol Depression Answer Date Recorded Patient Health Questionnaire-9 Score 7 08/13/2023 Patient Health Questionnaire-9 Score 7 08/13/2023 Last PHQ-9: Questionnaire Data Not on file 0 08/13/2023 Housing Stability Answer Date Recorded What is your housing situation today? I have [employer] [place] 03/25/[address] you li ve. Do you have problems with any of the following? None of the above 03/25/2023 Food Insecurity Answer Date Recorded Within the past 12 months, y ou worried that your food would run out before you got money to buy more: Sometimes True 2023 Within the past 12 months,th e food you bought just didn't last and you didn't have enough money to get more: Sometimes True 06/20/2023 Transportation Answer Date Recorded In the past 12 months, has l ack of transportation kept you from medical appts, meetings, work or from getting things needed for daily living? No 03/25/2023 Utilities Answer Date Recorded In the past 12 months, has t he electric, gas, oil or water company threatened to shut off services in your home? No 03/25/2023 Depression Answer Date Recorded Patient Health Questionnaire-2 Score 2 08/13/2023 Comments Unknown Sex and Gender Information Value Date Recorded Sex Assigned at Female 03/19/2022 10:39 AM EDT Legal Sex Female 10:39 AM EDT Gender Identity Female 03/19/2022 10:39 AM EDT Sexual Orientation Straight 03/19/2022 10 :39 AM EDT documented as of this encounter Progress Notes * Amanda Starr LPN - 07/27/2024 2:23 PM EDT Subjective Patient ID: Doreen Willoughby is a 49 y.o. female who presents lab orders for T-Spot documented in this encounter Plan of Treatment Scheduled Orders Name Type Priority Associated Diagnoses Orde r Schedule T-SPOT??.TB Lab Routine Screening examination for pulmonary tuberculosis Expected: 07/27/2024 (Approximate), Expires: 07/27/2025 documented as of this encounter Visit Diagnoses Diagnosis Screening examination for pulmonary tuberculosis- Primary documented in this encounter Additional Health Concerns Assessment Noted Time PHQ-9 Depression Total Score: 7 08/13/19 24 9:26 AM EDT documented as of this encounter Care Teams Surveillance Investigator Relationship Specialty Start Date End Date Em Lemus MD [address] [place] [id number] PCP - General Internal Medicine 08/13/23 documented as of this encounter
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
--- OUTSIDE RECORDS SUMMARY | 2024-07-27 16:48 | XMS_ITS | Encounter Summary ---
Author Organization [employer] Address [address] [place] [address] [address] [place] [address] Care Team Providers Care Lactation Coordinator Name Role Phone Em Lemus MD Primary Care Pro vider Reason for Visit * Reason Onset Date Comments Transfer Patient 07/17/2024 Encounter Details Date Type Department Care Team ([facility] st Contact Info) Description 07/17/2024 Telephone [facility]INE [address] [place] [address] Em Lemus MD [address] [place] [address] Transfer Patient Social History Tobacco Use Types Packs/Day Years Used Date Smoking Tobacco: Former Cigarettes 1 33 1 985 - 2018 Smokeless Tobacco: Never Comments:Started smoking 14 y [...] AM EDT documented as of this encounter Miscellaneous Notes * Telephone Encounter - Eloy Cheek RN - 07/23/2024 3:38 PM EST TC placed to patient who reports she would like to switch PCP as she was not comfortable with current PCP Dr Dimas. Did not feel needs were met and she was being listened to at last appt with PCP. Patient is requesting provider she had for recent pre op Aundrea Larson. Patient informed that transfer is approved and destination coordinator will send message to front end developer javascript html css to contact her with transfer patient appt. * Telephone Encounter - Kodi Kelsey - 07/17/2024 2:15 PM EST Tc from pt requesting to switch PCP due to her feeling uncomfortable in past appt. Pt prefers female provider not male provider. documented in this encounter Plan of Treatment Not on file documented as of this encounter Visit Diagnoses Not on filedocumented in this encounter Additional Health Concerns Assessment Noted Time PHQ-9 Depression Total Score: 7 08/13/19 24 9:26 AM EDT documented as of this encounter Care Teams Lactation Coordinator Relationship Specialty Start Date End Date Em Lemus MD [address] [place] [id number] PCP - General Internal Medicine 08/13/23 documented as of this encounter
--- OUTSIDE RECORDS SUMMARY | 2024-07-27 16:48 | XMS_ITS | Encounter Summary ---
Author Organization [employer] Address [address] [place] [address] 7t [place] [address] Care Team Providers Care Furnace Builder Name Role Phone Em Lemus MD Primary Care Pro vider Reason for Visit * Reason Onset Date Comments May Recall 07/17/2024 Encounter Details Date Type Department Care Team ([facility] st Contact Info) Description 07/17/2024 Telephone [facility] MED[facility]INE [address] [place] [address] Em Lemus MD [address] [place] [address] May Recall Social History Tobacco Use Types Packs/Day Years [...] encounter Miscellaneous Notes * Telephone Encounter - Masha Rg MA - 07/17/2024 1:48 PM EST Telephone call to patient to schedule a recall appointment. No answer, Left voicemail to return call to clinic.. Recall letter sent. Visit type: Physical After this Date 08/13/24 Appointment notes: Physical Month due: September With: Wing Please schedule appointment above if patient returns call documented in this encounter Plan of Treatment Not on file documented as of this encounter Visit Diagnoses Not on filedocumented in this encounter Additional Health Concerns Assessment Noted Time PHQ-9 Depression Total Score: 7 08/13/19 24 9:26 AM EDT documented as of this encounter Care Teams Furnace Builder Relationship Specialty Start Date End Date Em Lemus MD [address] [place] [id number] PCP - General Internal Medicine 08/13/23 documented as of this encounter
--- OUTSIDE RECORDS SUMMARY | 2024-07-27 16:48 | XMS_ITS | Encounter Summary ---
Author Organization [employer] Address [address] [facility] 7t [place] [address] Care Team Providers Care Pit Inspector Name Role Phone Skye Tao Primary Care Provider [phone] Deborah Crews OIL SEAL ASSEMBLER Primary Care Provider [phone] Em Lemus MD Primary Care Pro vider Reason for Visit * Reason Comments Med Refill Encounter Details Date Type Department Care Team (Late st Contact Info) Description 11/22/2022 Refill [facility] MED[facility]INE [address] [place] [address] Skye Tao FNP [address] [facility] Dept [place] [address] Weight gain Social History Tobacco Use Types Packs/Day Years Used Date Smoking Tobacco: Former Cigarettes 1 33 1 2017 Smokeless Tobacco: Never Alcohol Use Standard Drinks/Week Comments Not Currently 0 (1 standard drink = 0.6 oz pur e alcohol) Quit 7 years ago Depression Answer Date Recorded Patient Health Questionnaire-9 Score 13 08/07/2022 Depression Answer Date Recorded Patient Health Questionnaire-2 Score 4 08/07/2022 Comments Unknown Sex and Gender Information Value Date Recorded Sex Assigned at Female 03/19/2022 10:39 AM EDT Legal Sex Female 10:39 AM EDT Gender Identity Female 03/19/2022 10:39 AM EDT Sexual Orientation Straight 03/19/2022 10 :39 AM EDT COVID-19 Exposure Response Date Recorded In the last 10 days, have yo u been in contact with someone who was confirmed or suspected to have Coronavirus/COVID-19? No / Unsure 11/21/2022 9:24 PM EDT documented as of this encounter Plan of Treatment Not on file documented as of this encounter Visit Diagnoses Diagnosis Weight gain Other symptoms concerning nutrition, metabolism, and development documented in this encounter Additional Health Concerns Assessment Noted Time PHQ-9 Depression Total Score: 13 023 2:51 PM EDT documented as of this encounter Care Teams Pit Inspector Relationship Specialty Start Date End Date Skye Tao FNP PCP - General Family Medicine 06/28/22 01/14/23 Deborah Crews FNP [address] [place] [address] PCP - General Family Medicine 01/15/23 08/12/23 Em Lemus MD [address] [place] [address] PCP - General Internal Medicine 08/13/23 documented as of this encounter
--- OUTSIDE RECORDS SUMMARY | 2024-07-27 16:48 | XMS_ITS | Encounter Summary ---
Author Organization [facility] [employer] Address [address] [facility] 7t [place] [address] Care Team Providers Care Saxophone Assembler Name Role Phone Skye Tao Primary Care Provider [phone] Deborah Crews Primary Care Provider [phone] Em Lemus MD Primary Care Pro vider Reason for Visit * Reason Comments Med Refill Encounter Details Date Type Department Care Team (Late st Contact Info) Description 11/16/2022 Refill [facility] [address] [place] [address] Skye Tao FNP [address] [facility] [place] [address] Weight gain Social History Tobacco Use Types [...] suspected to have Coronavirus/COVID-19? No / Unsure 10/19/2022 3:36 PM EDT documented as of this encounter Plan of Treatment Not on file documented as of this encounter Visit Diagnoses Diagnosis Weight gain Other symptoms concerning nutrition, metabolism, and development documented in this encounter Additional Health Concerns Assessment Noted Time PHQ-9 Depression Total Score: 13 023 2:51 PM EDT documented as of this encounter Care Teams Saxophone Assembler Relationship Specialty Start Date End Date Skye Tao FNP PCP - General Family Medicine 06/28/22 01/14/23 Deborah Crews FNP [address] [place] [address] PCP - General Family Medicine 01/15/23 08/12/23 Em Lemus MD [address] [place] [address] PCP - General Internal Medicine 08/13/23 documented as of this encounter
--- OUTSIDE RECORDS SUMMARY | 2024-07-27 16:48 | XMS_ITS | Encounter Summary ---
Author Organization [employer] Address [address] [facility] [address] 7t [place] [address] Care Team Providers Care Chief Inspector Name Role Phone Em Lemus MD Primary Care Pro vider Encounter Details Date Type Department Care Team (Late st Contact Info) Description 05/10/2024 Orders Only [facility] MEDICINE [address] [place] [address] Provider, MD Myesha Social History Tobacco Use Types Packs/Day Years [...] AM EDT documented as of this encounter Plan of Treatment Not on file documented as of this encounter Procedures Procedure Name Priority Date/Time Associated Diagnosis Comments HM PAP/HPV Routine 12/10/2023 6:42 PM EDT documented in this encounter Results * HM PAP/HPV (12/10/2023 6:42 PM EDT) Historical Provider HEALTH MAINTENANCE Final Result documented in this encounter Visit Diagnoses Not on filedocumented in this encounter Additional Health Concerns Assessment Noted Time PHQ-9 Depression Total Score: 7 08/13/19 24 9:26 AM EDT documented as of this encounter Care Teams Chief Inspector Relationship Specialty Start Date End Date Em Lemus MD [address] [place] [id number] PCP - General Internal Medicine 08/13/23 documented as of this encounter
--- OUTSIDE RECORDS SUMMARY | 2024-07-27 16:48 | XMS_ITS | Encounter Summary ---
Author Organization [facility] [employer] Address [address] [place] [address] [place] [address] Care Team Providers Care Block Cuber Name Role Phone Skye Tao [facility] Primary Care Provider [phone] Deborah Crews [facility] Primary Care Provider [phone] Em Lemus MD Primary Care Pro vider Encounter Details Date Type Department Care Team (Latest Contact Info) Description 07/07/2021 Abstract [facility] CONVERSION[facility] Dental, Provider, DDS Social History Tobacco Use Types Packs/Day Years Used Date Smoking Tobacco: Never Assessed Comments Unknown Sex and Gender Information Value Date Recorded Sex Assigned at Female 03/19/2022 10:39 AM EDT Legal Sex Female 10:39 AM EDT Gender Identity Female 03/19/2022 10:39 AM EDT Sexual Orientation Straight 03/19/2022 10 :39 AM EDT documented as of this encounter Plan of Treatment Not on file documented as of this encounter Visit Diagnoses Not on filedocumented in this encounter Care Teams Block Cuber Relationship Specialty Start Date End Date Skye Tao FNP PCP - General Family Medicine 06/28/22 01/14/23 Deborah Crews FNP [address] [place] [address] PCP - General Family Medicine 01/15/23 08/12/23 Em Lemus MD [address] [place], [place] [phone] PCP - General Internal Medicine 08/13/23 documented as of this encounter
--- OUTSIDE RECORDS SUMMARY | 2024-07-27 16:48 | XMS_ITS | Encounter Summary ---
Author Organization [facility] [employer] Address [address] [facility] 7t [place] [address] Care Team Providers Care Medical Office Receptionist Name Role Phone Skye Tao Primary Care Provider [phone] Deborah Crews Primary Care Provider [phone] Em Lemus MD Primary Care Pro vider Reason for Visit * Reason Onset Date Comments Medication Question 12/06/2022 Encounter Details Date Type Department Care Team ([facility] st Contact Info) Description 12/06/2022 Telephone [facility] MEDICINE [address] [place] [address] Skye Tao FNP [address] [facility] Dept [place] [address] Medication Question Social History Tobacco Use Types Packs/Day Years Used Date Smoking Tobacco: Former Cigarettes 1 33 2017 Smokeless Tobacco: Never Alcohol Use Standard [...] PM EDT documented as of this encounter Miscellaneous Notes * Telephone Encounter - Glo Lazo - 12/06/2022 3:22 PM EDT Tc from patient requesting a call back, regarding questions for medications phentermine 30 MG capsule and topiramate (Topamax) 50 MG tablet. documented in this encounter Plan of Treatment Not on file documented as of this encounter Visit Diagnoses Not on filedocumented in this encounter Additional Health Concerns Assessment Noted Time PHQ-9 Depression Total Score: 13 023 2:51 PM EDT documented as of this encounter Care Teams Medical Office Receptionist Relationship Specialty Start Date End Date Skye Tao FNP PCP - General Family Medicine 06/28/22 01/14/23 Deborah Crews FNP [address] [place] [id number] PCP - General Family Medicine 01/15/23 08/12/23 Em Lemus MD [address] [place] [id number] PCP - General Internal Medicine 08/13/23 documented as of this encounter
--- OUTSIDE RECORDS SUMMARY | 2024-07-27 16:48 | XMS_ITS | Encounter Summary ---
Author Organization [facility] [employer] Address [address] [facility] 7t [place] [address] Care Team Providers Care Morning Show Producer Name Role Phone Skye Tao Primary Care Provider [phone] eDborah Crews FINAL INSPECTOR MOVEMENT ASSEMBLY Primary Care Provider [phone] Em Lemus MD Primary Care Pro vider Reason for Visit * Reason Comments Med Refill Encounter Details Date Type Department Care Team (Late st Contact Info) Description 10/19/2022 Refill [facility] MEDICINE [address] [place] [address] Skye Tao FNP [address] [facility] Dept [place] [address] Weight gain Social History Tobacco Use Types [...] documented as of this encounter Care Teams Morning Show Producer Relationship Specialty Start Date End Date Skye Tao FNP PCP - General Family Medicine 06/28/22 01/14/23 Deborah Crews FNP [address] [place] [address] PCP - General Family Medicine 01/15/23 08/12/23 Em Lemus MD [address] [place] [address] PCP - General Internal Medicine 08/13/23 documented as of this encounter
[2024-07-29 23:54] LABS: TS Negative Control Passed; TS Panel A 0; TS Panel B 0; TS Positive Control Passed; TSpotTB Negative (Negative)
== END 2024-07-27 14:40 | disposition home or self-care (01) ==
LOC: HO.HHCL 14:39
PROVIDERS: Visit Provider Student in an Organized Health Care Education/Training Program
DX: Z11.1 Encounter for screening for respiratory tuberculosis (principal)
CPT/HCPCS: 36415; 86481

== ENCOUNTER 2025-04-29 23:33 | Emergency (ER) | payer MEDICARE, SELFPAY ==
--- NOTE | 2025-04-29 23:36 | ECG_ITS ---
Test Reason : palpitations Blood Pressure : */* mmHG Vent. Rate : 77 BPM Atrial Rate : 77 BPM P-R Int : 156 ms QRS Dur : 88 ms QT Int : 402 ms P-R-T Axes : 67 73 71 degrees QTcB Int : 454 ms Normal sinus rhythm Normal ECG When compared with ECG of 17-Dec-2015 04:24, Incomplete right bundle branch block is no longer Present Referred By: Generic ED Physician Electronically Signed By: ERROL MAZARIEGOS MD
[2025-04-29 23:53] VITALS: BP 126/77; PULSE 71; RESP 16; TEMP 36.7; O2SAT 100; BMI 23.8
[2025-04-30 00:13] LABS: Hematocrit 39.3 % (37.0-47.0); Hemoglobin 13.4 g/dl (12.0-16.0); Mean Corpuscular HGB Conc 34.1 g/dl (31.0-35.0); Mean Corpuscular Hemoglobin 30.0 pg (27.0-33.0); Mean Corpuscular Volume 87.9 fL (80.0-98.0); NRBC Abs Auto 0.000 X10*3/uL (0.0-0.012); NRBC Pct Auto 0.0 /100WBC (0.0-0.2); Platelet Count 244 X10*3/uL (160-400); Red Blood Count 4.47 X10*6/uL (4.20-5.50); White Blood Count 10.0 X10*3/uL (4.8-10.8)
--- OUTSIDE RECORDS SUMMARY | 2025-04-30 00:13 | XMS_ITS | Encounter Summary ---
Author Organization [employer] Address [address] [facility] 7t [place] [address] Care Team Providers Care Radar Mechanic Name Role Phone Skye TaoP Primary Care Provider Heather Deborah Moran WORM FARMER Primary Care Provider [phone] Em Lemus MD Primary Care Pro vider Aundrea Larson NP Primary Care Provider [phone] Reason for Visit * Reason Onset Date Comments Medication Question 12/06/2022 Encounter Details Date Type Department Care Team ([facility] st Contact Info) Description 12/06/2022 Telephone [facility] MEDICINE [address] [place] [address] Skye Tao FNP Medication Question Social History Tobacco Use Types [...] documented as of this encounter Care Teams Radar Mechanic Relationship Specialty Start Date End Date Skye Tao FNP PCP - General Family Medicine 06/28/22 01/14/23 Deborah Crews FNP [address] [place] [address] PCP - General Family Medicine 01/15/23 08/12/23 Em Lemus MD [address] [place] [address] PCP - General Internal Medicine 08/13/23 09/24/24 Aundrae Larson NP [address] [place] [address] PCP - General Family Medicine 09/25/24 documented as of this encounter
--- OUTSIDE RECORDS SUMMARY | 2025-04-30 00:13 | XMS_ITS | Encounter Summary ---
Author Organization [facility] Address [address] [facility] [address] [place] [address] Phone Care Team Providers Care Injury Prevention Coordinator Name Role Phone Kael Mejias MD Primary Care Provider Kael Mejias MD Primary Care Provider Kael Mejias MD Primary Care Provider Neelam Beasley MD, MPH Primary Care Provid er Pcp, Unknown Primary Care Provider Unavailabl e Encounter Details Date Type Department Care Team (Late st Contact Info) Description 07/27/2019 Ancillary Orders [facility] [address] [place] [id number] Kirstin Olguin MD [address] [facility], [address] [place] [address] [email or web address] Abnormal mammogram Social History Tobacco Use Types Packs/Day Years Used Date Smoking Tobacco: Former Cigarettes Q uit: 2019 Smokeless Tobacco: Never Alcohol Use Standard Drinks/Week Comments No 0 (1 standard drink = 0.6 oz pur e alcohol) Comments No Sex and Gender Information Value Date Recorded Sex Assigned at Female 06/16/2017 1:36 PM EST Legal Sex Female 9:26 PM EDT Gender Identity Female 06/16/2017 1:36 PM EST Sexual Orientation Straight 06/16/2017 1: 36 PM EST documented as of this encounter Plan of Treatment Not on file documented as of this encounter Results * BI MAMMOGRAM DIAGNOSTIC WITH TOMOSYNTHESIS WITH CAD (RIGHT) (07/31/2019 11:21 AM EDT) Anatomical Region Laterality Modality Breast Right, Breast Bilateral Right M ammography 07/31/2019 11:4 2 AM EDT Impressions 07/31/2019 1:39 PM EDT Previously noted 2 clusters of calcifications in the right breast are very likely benign milk of calcium-type calcifications. A six-month follow-up right mammogram including magnification CC and magnification true lateral views is recommended. The results were relayed to the patient. BI-RADS CATEGORY: 3 - Probably benign finding. Short interval follow up suggested. RIGHT RECOMMENDATION DUE DATE: 6 Months Short Interval Follow-Up POS [id number] Edited by: Toshia Teran on 07/31/2019 1:37 PM Narrative 07/31/2019 1:39 PM EDT Right mammogram additional views. Magnified CC and magnified true lateral, and non-magnified 3-D true lateral views of the right breast are compared to the screening 2-D study from 07/24/2019. Both of the clusters of calcifications noted on the recent screening study appear to change shape significantly between the CC and true lateral views. Some of them have a typical milk of calcium appearance. No associated mass or architectural distortion. No new calcifications are apparent on today's images. Procedure Note Pierre Hilario MD - 07/31/2019 Right mammogram additional views. Magnified CC and magnified true lateral, and non-magnified 3-D truelateral views of the right breast are compared to the screening 2-D studyfrom 07/24/2019. Both of the clusters of calcifications noted on the recent screening studyappear to change shape significantly between the CC and true lateralviews. Some of them have a typical milk of calcium appearance. No associated mass or architectural distortion. No new calcifications are apparent on today's images. IMPRESSION: Previously noted 2 clusters of calcifications in the right breast are verylikely benign milk of calcium-type calcifications. A six-month follow-upright mammogram including magnification CC and magnification true lateralviews is recommended. The results were relayed to the patient. BI-RADS CATEGORY: 3 - Probably benign finding. Short interval follow upsuggested. RIGHT RECOMMENDATION DUE DATE: 6 Months Short Interval Follow-Up POS [id number] Edited by: Toshia Teran on 07/31/2019 1:37 PM Kirstin Olguin MD IM MG EXAMS Final Result documented in this encounter Visit Diagnoses Diagnosis Abnormal mammogram Abnormal mammogram, unspecified Abnormal mammogram Abnormal mammogram, unspecified documented in this encounter Care Teams Injury Prevention Coordinator Relationship Specialty Start Date End Date Kael Mejias MD [email or web address] PCP - General Family Medicine 06/17/17 01/25/20 Kael Mejias MD [email or web address] PCP - General Family Medicine 01/26/20 06/09/20 Kael Mejias MD [email or web address] PCP - General Family Medicine 06/10/20 02/22/22 Neelam Beasley MD, MPH [address] [place] [address] [email or web address] PCP - General Family Medicine 02/23/22 09/20/22 Pcp, Unknown PCP - General 09/21/22 documented as of this encounter Additional Source Comments The information contained in this document represents components of the legal health record. It is not the complete legal health record.[facility]
--- OUTSIDE RECORDS SUMMARY | 2025-04-30 00:13 | XMS_ITS | Encounter Summary ---
Author Organization [facility] Address [address] [facility] [address] [place] [phone] Phone Care Team Providers Care Supervisor Park Workers Name Role Phone Kael Mejias MD Primary Care Provider Kael Mejias MD Primary Care Provider Kael Mejias MD Primary Care Provider Neelam Beasley MD, MPH Primary Care Provid er Pcp, Unknown Primary Care Provider Unavailabl e Encounter Details Date Type Department Care Team (Late st Contact Info) Description 01/21/2020 Procedure Pass [facility], [address] [address] Social History Tobacco Use Types Packs/Day Years [...] on filedocumented in this encounter Care Teams Supervisor Park Workers Relationship Specialty Start Date End Date Kael Mejias MD [email or web address] PCP - General Family Medicine 06/17/17 01/25/20 Kael Mejias MD [email or web address] PCP - General Family Medicine 01/26/20 06/09/20 Kael Mejias MD [email or web address] PCP - General Family Medicine 06/10/20 02/22/22 Neelam Beasley MD, MPH [address] [place] [id number] [email or web address] PCP - General Family Medicine 02/23/22 09/20/22 Pcp, Unknown PCP - General 09/21/22 documented as of this encounter Additional Source Comments The information contained in this document represents components of the legal health record. It is not the complete legal health record.[facility]
--- OUTSIDE RECORDS SUMMARY | 2025-04-30 00:13 | XMS_ITS | Clinical Summary ---
Author Organization [facility] Address [address] [facility] [address] [place] [phone] Phone Care Team Providers Care Vest Finisher Name Role Phone Pcp, Unknown Primary Care Provider Unavailabl e Allergies No known active allergies Medications lurasidone (LATUDA) 60 mg Tab 1 tablet with food Active escitalopram oxalate (LEXAPRO) 20 MG tablet 0.5 tablet Active mirtazapine (REMERON JOANNA-TAB) 30 MG disintegrating tablet 1 tablet before bedtime in the evening Active prazosin (MINIPRESS) 2 MG capsule 1 capsule at bedtime Active buPROPion (WELLBUTRIN) 75 MG immediate release tablet 0 Active FLUoxetine (PROZAC) 40 MG capsule 0 Active ibuprofen (ADVIL,MOTRIN) 800 MG tablet Take 800 mg by mouth every 6 (six) hours as needed for pain (specific location in comments). Active Active Problems Problem Noted Date Diagnosed Date Bipolar 2 disorder 12/02/2022 Calcification of right breast on mammography Overview (12/10/2023): 08/05/2019 noted on Mammo 02/05/20: BIRADS 3, f/u 6 months Cigarette nicotine dependence without complicati on 12/02/2022 Opioid use disorder in remission 12/02/2022 Overview (12/10/2023): Quit 12/17/2015 Suicide attempt w/ heroin 12/16/2015 Overweight 10/19/2022 Overview (12/10/2023): Last Assessment & Plan: Cravings constant Weight increasing since November Pt will contact Weight mgmt and make an appt Continue Phentermine 30 mg daily Pt would like to try new GLP - 1 Agonist Mounjaro. Sent 2.5mg/0.5ml weekly dose to pharmacy Will assist with PA paperwork; most likely will require PA Continue BH therapy and discuss weight/food and cravings with therapist F/u 2-3 months with new PCP IUD (intrauterine device) in place 07/06/2019 Overview (07/06/2019): Mirena 2017 Eczema 06/06/2017 Generalized anxiety disorder 06/06/2017 Resolved Problems Problem Noted Date Diagnosed Date Resolved Date Tobacco use 06/06/2017 07/06/2019 Breast lump on right side at 8 o'clock position 06/06/2017 07/06/2019 Assessment & Plan (06/06/2017 11:33 AM EST): Fibrocystic changes noted bilaterally on exam, right breast more prominent. In particular, 1.5cm mobile/well circumscribed mass at 8:00 position on right breast approx 2cm out from nipple. This mass corresponds to area of concern. Diagnostic mammo ordered as no recent breast imaging on file, will call patient with result. Immunizations Immunization Administration Dates Next Due Hepatitis B Adult 11/15/2023 INFLUENZA, SPLIT VIRUS, TRIVALENT W/ PRESERVATIV E IM 04/10/2010 Influenza Quadrivalent Preservative Free IM 02/18,07/16/2019 Meningococcal Conjugate Quad rivalent, MenACWY-TT (MCV4) 09/06/2023 Td (adult),2 Lf Tetanus Toxoid, PF, Adsorbed Td, unspecified formulation 06/24/2003 Tdap 09/06/2023 Family History Medical History Relation Comments COPD Father Hypertension Father Cancer Maternal Grandfather Heart attack Paternal Grandfather Stroke Paternal Grandfather Heart attack Paternal Grandmother Stroke Paternal Grandmother Breast cancer Neg Hx Relation Status Comments Father Alive Maternal Grandfather Maternal Grandmother Alive Mother Alive Paternal Grandfather Paternal Grandmother Social History Tobacco Use Types Packs/Day Years Used Date Smoking Tobacco: Former Cigarettes Q uit: 2019 Smokeless Tobacco: Never Tobacco Cessation:Counseling Given: Not Answered Alcohol Use Standard Drinks/Week Comments No 0 (1 standard drink = 0.6 oz pur e alcohol) Education Answer Date Recorded Are you interested in more education? Not on ashley e 09/14/2022 Are you concerned about learning? Not on file 09/14/2022 No 09/14/2022 No 09/14/2022 Digital Access Answer Date Recorded No 10/15/2022 No 10/15/2022 Reliable internet access at home? Not on file 10/15/2022 Device with a working camera? Not on file Comments No Sex and Gender Information Value Date Recorded Sex Assigned at Female 06/16/2017 1:36 PM EST Legal Sex Female 9:26 PM EDT Gender Identity Female 06/16/2017 1:36 PM EST Sexual Orientation Straight 06/16/2017 1: 36 PM EST Last Filed Vital Signs Vital Sign Reading Time Taken Comments Blood Pressure 108/70 12/10/2023 9:00 AM EDT Pulse 86 06/06/2017 10:42 AM EST Temperature - - Respiratory Rate - - Oxygen Saturation - - Inhaled Oxygen Concentration - - Weight 73.3 kg (161 lb 9.6 oz) 12/10/2023 9:00 A M EDT Height 157.5 cm (5' 2 ) 12/10/2023 9:00 AM EDT Body Mass Index 29.56 12/10/2023 9:00 AM EDT Plan of Treatment Health Maintenance Due Date Last Done Comments LIPID PANEL 1977 DEPRESSION SCREENING 1989 SMOKING Hx and SMOKELESS TOBACCO SCREENING 1990 HEPATITIS C SCREENING 1995 HIV ONE-TIME SCREENING (18-65 YEARS) 1995 SCREENING FOR DIABETES 02/25/2012 COLOGUARD 2022 COLONOSCOPY 2022 COLORECTAL CANCER SCREENING 2022 FIT TEST 2022 FOBT 2022 SIGMOIDOSCOPY 2022 VIRTUAL COLONOSCOPY 2022 INFLUENZA VACCINE (#1) 2024 0, 07/16/2019, 04/10/2010 COVID-19 VACCINE ( season) 2025 08/13/2023, 05/24/2021, 08/24/2020 MAMMOGRAM 06/01/2026 06/01/2024, 08/05/2022, 08/28/2022, Additional history exists PAP SMEAR 12/09/2028 12/10/2023, 06/20, 07/06/2019, Additional history exists Adult Td,Tdap Booster 09/05/2033 09/06/2023 , 04/16/2018, 06/24/2003 MENINGOCOCCAL VACCINES (ACWY) Aged Out 09/06/2023 No longer eligible based on patient's age to complete this topic HEPATITIS A VACCINES Aged Out No long er eligible based on patient's age to complete this topic HIB VACCINES Aged Out No longer eligi ble based on patient's age to complete this topic MENINGOCOCCAL VACCINES (B) Aged Out N o longer eligible based on patient's age to complete this topic PNEUMOCOCCAL VACCINES (0-49 years) Aged Out No longer eligible based on patient's age to complete this topic Medical Devices Not on file Procedures Procedure Name Priority Date/Time Associated Diagnosis Comments BI MAMMOGRAM SCREENING WITH TOMOSYNTHESIS WITH CAD (BILATERAL) Routine 06/01/2024 3:31 PM EST Encounter for screening mammogram for malignant neoplasm of breast PAP TEST Routine 12/10/2023 12:00 AM EDT from Last 3 Months or Most Recently Relevant to Health Maintenance Results * BI MAMMOGRAM SCREENING WITH TOMOSYNTHESIS WITH CAD (BILATERAL) (06/01/2024 3:31 PM EST) Anatomical Region Laterality Modality Breast Left, Breast Right, Breast Bilateral Bila teral Mammography 06/14/2024 4:05 PM EST Impressions 06/14/2024 4:12 PM EST No mammographic evidence of malignancy in either breast. Annual screening mammography is recommended. BI-RADS 1 NEGATIVE The patient will be notified of the results and recommendations. Narrative 06/14/2024 4:12 PM EST BI MAMMOGRAM SCREENING WITH TOMOSYNTHESIS WITH CAD (BILATERAL) Additional patient information: Screening. COMPARISON: Comparison is made with relevant prior imaging. Breast composition: There are scattered areas of fibroglandular density. FINDINGS: Previous needle biopsy in the right breast. No abnormal masses, suspicious calcifications, or other significant findings are identified mammographically in either breast. Procedure Note Agueda Wells, DO - 06/14/2024 BI MAMMOGRAM SCREENING WITH TOMOSYNTHESIS WITH CAD (BILATERAL) Additional patient information: Screening. COMPARISON: Comparison is made with relevant prior imaging. Breast composition: There are scattered areas of fibroglandular density. FINDINGS: Previous needle biopsy in the right breast. No abnormal masses, suspicious calcifications, or other significantfindings are identified mammographically in either breast. IMPRESSION: No mammographic evidence of malignancy in either breast. Annual screening mammography is recommended. BI-RADS 1 NEGATIVE The patient will be notified of the results and recommendations. Julio Bergeron MD IMG MG EXAMS Final Result * Pap Test (12/10/2023 12:00 AM EDT) Report [address] [id number] [employer] Supp[employer] Distributor: Lila Davidson MD AREA COORDINATOR Cytology Report FINAL DIAGNOSIS A. PAP SMEAR (THIN PREP) CE: SPECIMEN ADEQUACY: Satisfactory for evaluation; transformation zone absent/insufficient . INTERPRETATION: NEGATIVE FOR INTRAEPITHELIAL LESION OR MALIGNANCY. Reactive changes. Parakeratosis This specimen was analyzed by the automated ThinPrep Imaging System ([employer] and manually rescreened by a rat poisoner and/or pathologist. Electronically Signed Out By: MD Yajaira Drummond CT([facility]) By his/her signature above, the pathologist listed as making the Final Diagnosis certifies that he/she has personally reviewed this case and confirmed or corrected the diagnosis. The Pap test is a screening test primarily for squamous cancers and precursors and has associated false-negative and false-positive results. New technologies such as liquid-based preparations may decrease but will not eliminate all false-negative results. Regular sampling and follow-up of unexplained clinical signs and symptoms are recommended to minimize false negative results. PROCEDURES/ADDENDA HPV Testing (Requested) Ordered Date: 12/11/2023 A. PAP SMEAR (THIN PREP) CE: Human Papilloma Virus Test NEGATIVE for high-risk Human Papilloma Virus types 16, 18, 45 and the Other high risk probe set (Includes 31, 33, 35, 39, 51, 52, 56, 58, 59, 66, 68) Note: Testing performed by [employer] HR-HPV analysis. Clinical correlation is advised. This HPV test was performed at [facility], [address] [place] [address]. This test has been FDA approved for both SurePath and ThinPrep cervical cytology specimens. The accuracy and precision of this test for all other specimen sources has been verified in the Cytopathology Laboratory of the [facility] and has not been cleared or approved by the U.S. Food and Drug Administration. Clinical correlation is advised. CLINICAL HISTORY Date of Last Menstrual Period: Not Provided Menstrual History: Unknown Contraceptive History: IUD Other Clinical Conditions: Screening Pap SPECIMEN SOURCE A: PAP SMEAR (THIN PREP) CE Patient Name: FAMILIA DE LA CRUZ : 1975 (Age: 48) Sex: F Institution: [facility] Location: [facility] Date of Collection: 12/10/2023 Date of Reported: 12/13/2023 15:08 Results to: Julio Bergeron MD [facility] Final Diagnosis A. PAP SMEAR (THIN PREP) CE: SPECIMEN ADEQUACY: Satisfactory for evaluation; transformation zone absent/insufficient . INTERPRETATION: NEGATIVE FOR INTRAEPITHELIAL LESION OR MALIGNANCY. Reactive changes. Parakeratosis This specimen was analyzed by the automated ThinPrep Imaging System ([employer] and manually rescreened by a rat poisoner and/or pathologist. [facility] Results\Inte rpretation A. PAP SMEAR (THIN PREP) CE: Human Papilloma Virus TestNEGATIVE for high-risk Human Papilloma Virus types 16, 18, 45 and the Other high risk probe set (Includes 31, 33, 35, 39, 51, 52, 56, 58, 59, 66, 68)Note: Testing performed by [employer] HR-HPV analysis. Clinical correlation is advised. This HPV test was performed at [facility], [address] [place] [address]. This test has been FDA approved for both SurePath and ThinPrep cervical cytology specimens. The accuracy and precision of this test for all other specimen sources has been verified in the Cytopathology Laboratory of the [facility] and has not been cleared or approved by the U.S. Food and Drug Administration. Clinical correlation is advised. [facility] Conversion Type (Conversion Source) 12/10/2023 12/11/2023 10:38 AM EDT us Julio Bergeron MD CYTOLOGY ORDERABLES Edited Resul t - Final [facility] [address] [place] [address] from Last 3 Months or Most Recently Relevant to Health Maintenance Insurance MEDICARE PART A & B [employer] MEDICARE REPLACEMENT MEDICARE PART A & B MEDICARE REPLACEMENT MEDICARE PART A & B MEDICARE REPLACEMENT Member Subscriber Plan / Payer (Ef fective 2023-) Name:Familia De La Cruz Relation to Subscriber:Self Name:Familia De La Cruz Payer ID:[id number] (NAIC) Group ID:[id number] Type:Medicare Address: [place] [id number] MEDICARE PART A & B [facility] MEDICARE REPLACEMENT MEDICARE PART A & B [facility] CARE MEDICARE REPLACEMENT MEDICARE PART A & B [facility] CARE MEDICARE REPLACEMENT MEDICARE PART A & B CARE MEDICARE REPLACEMENT MEDICARE PART A & B MEDICARE REPLACEMENT MEDICARE PART A & B [employer] MEDICARE REPLACEMENT Care Teams Vest Finisher Relationship Specialty Start Date End Date Pcp, Unknown PCP - General 09/21/22 Additional Source Comments The information contained in this document represents components of the legal health record. It is not the complete legal health record.[facility]
--- OUTSIDE RECORDS SUMMARY | 2025-04-30 00:13 | XMS_ITS | Encounter Summary ---
Author Organization [employer] Address [address] [place] [address] 7 [place] [address] Care Team Providers Care Woolen Suiting Shrinker Name Role Phone Skye Tao BENEFITS MANAGER Primary Care Provider Heather Deborah MoranP Primary Care Provider [phone] Em Lemus MD Primary Care Pro vider Aundrea Larson NP Primary Care Provider [phone] Encounter Details Date Type Department Care Team (Latest Contact Info) Description 07/07/2021 Abstract [facility] CONVERSIONS Dental, Provider, DDS Social History Tobacco [...] on filedocumented in this encounter Care Teams Woolen Suiting Shrinker Relationship Specialty Start Date End Date Skye Tao FNP PCP - General Family Medicine 06/28/22 01/14/23 Deborah Crews FNP [address] [place], [place] [phone] PCP - General Family Medicine 01/15/23 08/12/23 Em Lemus MD [address] [place], [place] [phone] PCP - General Internal Medicine 08/13/23 09/24/24 Aundrea Larson NP [address] [place] [address] PCP - General Family Medicine 09/25/24 documented as of this encounter
--- OUTSIDE RECORDS SUMMARY | 2025-04-30 00:13 | XMS_ITS | Encounter Summary ---
Author Organization [employer] Address [address] [facility] [address] [place] [address] Care Team Providers Care Double Needle Stitcher Name Role Phone Em Lemus MD Primary Care Pro vider Aundrea Larson NP Primary Care Provider [phone] Encounter Details Date Type Department Care Team (Late st Contact Info) Description 05/10/2024 Orders Only [facility]ICINE [address] [place] [address] Provider, MD Myesha Social History Tobacco Use [...] is your housing situation today? I have wooyd greenwood 03/25/[address] you [...] documented as of this encounter Care Teams Double Needle Stitcher Relationship Specialty Start Date End Date Em Lemus MD [address] [place] [address] PCP - General Internal Medicine 08/13/23 09/24/24 Aundrea Larson NP [address] [place] [address] PCP - General Family Medicine 09/25/24 documented as of this encounter
--- OUTSIDE RECORDS SUMMARY | 2025-04-30 00:13 | XMS_ITS | Encounter Summary ---
Author Organization [employer] Address [address] [place] [address] 7 [place] [address] Care Team Providers Care Target Worker Name Role Phone Em Lemus MD Primary Care Pro vider Aundrea Larson NP Primary Care Provider [phone] Reason for Visit * Reason Onset Date Comments Transfer Patient 07/17/2024 Encounter Details Date Type Department Care Team ([facility] st Contact Info) Description 07/17/2024 Telephone [facility] MED[facility]INE [address] [place] [address] Em Lemus MD [address] [place] [address] Transfer Patient Social History Tobacco Use Types [...] Patient informed that transfer is approved and order puller will send message to front desk specialist to contact her with transfer patient appt. [...] documented as of this encounter Care Teams Target Worker Relationship Specialty Start Date End Date Em Lemus MD [address] [place] [address] PCP - General Internal Medicine 08/13/23 09/24/24 Aundrea Larson NP [address] [place] [address] PCP - General Family Medicine 09/25/24 documented as of this encounter
--- OUTSIDE RECORDS SUMMARY | 2025-04-30 00:13 | XMS_ITS | Encounter Summary ---
Author Organization [facility] Address [address] [employer] [facility] [address] [place] [address] Phone Care Team Providers Care Agile Developer Name Role Phone Pcp, Unknown Primary Care Provider Unavailabl e Encounter Details Date Type Department Care Team (Late st Contact Info) Description 12/10/2023 Procedure [facility], [address] [phone] Social History Tobacco Use Types Packs/Day Years [...] on filedocumented in this encounter Care Teams Agile Developer Relationship Specialty Start Date End Date Pcp, Unknown PCP - General 09/21/22 documented as of this encounter Additional Source Comments The information contained in this document represents components of the legal health record. It is not the complete legal health record.[facility]
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
--- OUTSIDE RECORDS SUMMARY | 2025-04-30 00:13 | XMS_ITS | Encounter Summary ---
Author Organization [employer] Address [address] [facility] 7t [place] [address] Care Team Providers Care Residential Housekeeper Name Role Phone Skye Tao HEAD OF RESEARCH & INSIGHTS Primary Care Provider Heather Deborah Moran HEAD OF RESEARCH & INSIGHTS Primary Care Provider [phone] Em Lemus MD Primary Care Pro vider Aundrea Larson NP Primary Care Provider [phone] Reason for Visit * Reason Comments Med Refill Encounter Details Date Type Department Care Team (Late st Contact Info) Description 11/16/2022 Refill [facility] [address] [place] [address] Skye Tao FNP Weight gain Social History Tobacco Use Types [...] documented as of this encounter Care Teams Residential Housekeeper Relationship Specialty Start Date End Date Skye Tao FNP PCP - General Family Medicine 06/28/22 01/14/23 Deborah Crews FNP [address] [place] [address] PCP - General Family Medicine 01/15/23 08/12/23 Em Lemus MD [address] [place] [address] PCP - General Internal Medicine 08/13/23 09/24/24 Aundrea Larson NP [address] [place] [address] PCP - General Family Medicine 09/25/24 documented as of this encounter
--- OUTSIDE RECORDS SUMMARY | 2025-04-30 00:13 | XMS_ITS | Encounter Summary ---
Author Organization [facility] Address [address] [facility] [address] [place] [phone] Phone Care Team Providers Care Building Components Designer Name Role Phone Kael Mejias MD Primary Care Provider [phone] Neelam Beasley MD, MPH Primary Care Provid er Pcp, Unknown Primary Care Provider Unavailabl e Encounter Details Date Type Department Care Team (Late st Contact Info) Description 02/22/2022 Transcribe Orders Virtual Department [address] [place] [address] Kael Mejias MD [address] [place], [place] [phone] [email or web address] Syncope and collapse (Primary Dx) Social History Tobacco Use Types [...] as of this encounter Visit Diagnoses Diagnosis Syncope and collapse- Primary documented in this encounter Care Teams Building Components Designer Relationship Specialty Start Date End Date Kael Mejias MD [email or web address] PCP - General Family Medicine 06/10/20 02/22/22 Neelam Beasley MD, MPH [address] [place], [place] [phone] [email or web address] PCP - General Family Medicine 02/23/22 09/20/22 Pcp, Unknown PCP - General 09/21/22 documented as of this encounter Additional Source Comments The information contained in this document represents components of the legal health record. It is not the complete legal health record.[facility]
--- OUTSIDE RECORDS SUMMARY | 2025-04-30 00:13 | XMS_ITS | Encounter Summary ---
Author Organization [employer] Address [address] [facility] 7t [place] [address] Care Team Providers Care Facilities Painter Name Role Phone Skye Tao OFFICE WORKER Primary Care Provider Heather Deborah Moran OFFICE WORKER Primary Care Provider [phone] Em Lemus MD Primary Care Pro vider Aundrea Larson NP Primary Care Provider Reason for Visit * Reason Comments Med Refill Encounter Details Date Type Department Care Team (Late st Contact Info) Description 10/19/2022 Refill [facility] [address] [place] [address] Skye Tao FNP Weight gain Social History [...] documented as of this encounter Care Teams Facilities Painter Relationship Specialty Start Date End Date Skye Tao FNP PCP - General Family Medicine 06/28/22 01/14/23 Deborah Crews FNP [address] [place] [address] PCP - General Family Medicine 01/15/23 08/12/23 Em Lemus MD [address] [place] [address] PCP - General Internal Medicine 08/13/23 09/24/24 Aundrea Larson NP [address] [place] [address] PCP - General Family Medicine 09/25/24 documented as of this encounter
--- OUTSIDE RECORDS SUMMARY | 2025-04-30 00:13 | XMS_ITS | Encounter Summary ---
Author Organization [employer] Address [address] [facility] 7t [place] [address] Care Team Providers Care Foot Piece Assembler Name Role Phone Skye Tao DRIVE WORKER Primary Care Provider Heather Deborah Moran DRIVE WORKER Primary Care Provider [phone] Em Lemus MD Primary Care Pro vider Aundrea Larson NP Primary Care Provider [phone] Reason for Visit * Reason Comments Med Refill Encounter Details Date Type Department Care Team (Late st Contact Info) Description 11/22/2022 Refill [facility] [address] [place] [address] Skye Tao FNP Weight gain Social History [...] documented as of this encounter Care Teams Foot Piece Assembler Relationship Specialty Start Date End Date Skye Tao FNP PCP - General Family Medicine 06/28/22 01/14/23 Deborah Crews FNP [address] [place] [address] PCP - General Family Medicine 01/15/23 08/12/23 Em Lemus MD [address] [place] [address] PCP - General Internal Medicine 08/13/23 09/24/24 Aundrea Larson NP [address] [place] [address] PCP - General Family Medicine 09/25/24 documented as of this encounter
[2025-04-30 00:26] LABS: Alanine Aminotransferase 21 U/L (0-31); Albumin Level 4.5 g/dL (3.5-5.0); Alkaline Phosphatase 67 U/L (39-117); Anion Gap 15 (12-20); Aspartate Amino Transferase 22 U/L (5-31); Blood Urea Nitrogen 15 mg/dL (9-16); Calcium 9.4 mg/dL (8.4-10.2); Carbon Dioxide 23 mmol/L (22-29); Chloride 106 mmol/L (96-108); Creatinine Clr Calc Pharmacy 67.2; Estimated Glomerular Filt Rate > 60; Potassium 3.8 mmol/L (3.3-5.1); Sodium 140 mmol/L (135-145); Total Protein 7.4 g/dL (6.5-8.0)
[2025-04-30 00:34] LABS: Troponin-I High Sensitivity < 2.7 ng/L (<3.5-17.0)
--- NOTE | 2025-04-30 02:07 | ED.ARRPALP ---
HPI - Arrhythmia/Palpitations General Chief Complaint: Arrhythmia/Palpitations Stated Complaint: palpitations/ SOB Time Seen by Provider: 04/30/25 01:44 Source: patient Mode of arrival: ambulatory Limitations: no limitations History of Present Illness ED Provider: Dr. Nubia Michel HPI narrative: Patient comes to the emergency room complaining of intermittent palpitations for the last couple of weeks. Patient states that sometimes she feels her heart racing, sometimes just palpitations, never having chest pain. Patient states that sometimes she feels like she can not quite catch her breath but it resolved fairly quickly. Initially, patient thought that this was secondary to feeling anxious, patient is on finals for nursing school. However, patient states that she does not feel anxious and still having palpitations. Patient is concerned about possibly having atrial fibrillation, states that several members in her family from her mother sides all have AFib. Patient denies any syncopal episodes. Related Data Home Medications ?Medication ?Instructions ?Recorded ?Confirmed No Known Home Meds 02/19/24 02/19/24 Allergies Allergy/AdvReac Type Severity Reaction Status Date / Time No Known Allergies (No Known Allergy Verified 04/29/25 23:59 Allergies*) Review of Systems Review of Systems: Constitutional : No Weight loss, No Fever, No Chills, No Night Sweats, No Fatigue, No Malaise ENT/Mouth : No Hearing loss, No Ear Pain, No Nasal Congestion, No Sinus Pain, No Hoarseness, No sore throat, No Rhinorrhea, No Swallowing Difficulty Eyes: No Eye Pain, No Swelling, No Redness, No Foreign Body, No Discharge, No Vision Changes Cardiovascular : No Chest Pain, No SOB, No Dyspnea on Exertion, No Orthopnea, No Edema, complaining of intermittent Palpitations Respiratory : No Cough, No Sputum, No Wheezing, No Smoke Exposure, No Dyspnea Gastrointestinal : No Nausea, No Vomiting, No Diarrhea, No Constipation, No abdominal Pain, No Hematochezia, No Melena Genitourinary : no irregular bleeding, No Dysuria, No Urinary Frequency, No Hematuria, No Urinary Incontinence, No Urgency, No Flank Pain, No Urinary Flow Changes, No Hesitancy Musculoskeletal : No joint pain, No Myalgias, No Joint Swelling Skin : No Skin Lesions, No rash Neuro : No Weakness, No Numbness, No Paresthesias, No Loss of Consciousness, No Dizziness, No Headache Psych : No Anxiety/Panic, No Depression, No SI/HI/AH/VH, No Social Issues, Heme/Lymph: No Bruising, No Bleeding,No Lymphadenopathy Endocrine : No Polyuria, No Polydipsia, No Temperature Intolerance FOR[facility] Past Medical History Medical History Diplopia Syringomyelia Insomnia Generalized anxiety disorder Opioid use disorder in remission Calcification of right breast on mammography Bipolar 2 disorder Overweight Dizziness Night terror History of depression Post traumatic stress disorder (PTSD) Surgical History H/O ovarian cystectomy Hx of cholecystectomy Social History Social History Alcohol intake: never Patient Tobacco Use Status: Never used Tobacco Advance Directives: No Advance Directives Information Provided: Yes Physical Exam Exam: Exam: Appearance: Alert. Oriented X3. No acute distress. Eyes: Pupils equal, round and reactive to light. ENT: Pharynx normal. Neck: Normal inspection. Neck supple. No lymph nodes noted. No crepitus CVS: Normal heart rate and rhythm. Pulses normal. Normal S1 and S2 Respiratory: No respiratory distress. Breath sounds normal. No Wheezing. No rales Abdomen: Soft and nontender. No rigidity. No distention. Skin: Skin warm and dry. Normal skin color. Normal skin turgor. Extremities: No lower extremity edema. No Lacerations. No Rash Neuro: Oriented X 3. No motor deficit. No sensory deficit. Moving all extremities. No slurred speech. CN 2 through 12 grossly intact Psych: calm, cooperative, normal affect Vital Signs: Vital Signs: Last Vital Signs Temp 98.0 F 04/29/25 23:53 Pulse 71 04/29/25 23:53 Resp 16 04/29/25 23:53 BP 126/77 04/29/25 23:53 Pulse Ox 100 04/29/25 23:53 O2 Del Method Room Air 04/29/25 23:53 BMI result Body Mass Index 23.8 Medical Decision Making Medical Decision Making MDM Narrative: My interpretation of EKG: Normal sinus rhythm, heart rate 77, no ST segment depression or elevation, no T-wave inversion, QTC 454 My interpretation of labs, hematology within normal limits, chemistry no acute abnormality. TSH within normal limits, hCG negative Patient has been on the monitor during her ED visit, no arrhythmias have been detected. I discussed with the patient that the best neck is step would be a Holter monitor evaluation through her primary care physician's or Cardiology. Patient agrees with plan. At this time, patient is stable, asymptomatic Differential Diagnosis Differential Diagnoses: The differential diagnosis associated with the presentation includes (PVCs, hypothyroidism, atrial fibrillation, atrial flutter, anxiety) Admission/Observation Consideration of admission/observation: Escalation of care including admission/observation considered (Given patient's age and symptoms, observation was considered) Lab Data MDM Lab Attestation statement: I reviewed the patient's lab results. 04/30/25 00:06 04/30/25 00:06 Labs: Lab Results 04/30/25 Range/Units 00:06 WBC 10.0 (4.8-10.8) X10*3/uL RBC 4.47 (4.20-5.50) X10*6/uL Hgb 13.4 (12.0-16.0) g/dl Hct 39.3 (37.0-47.0) % MCV 87.9 (80.0-98.0) fL MCH 30.0 (27.0-33.0) pg MCHC 34.1 (31.0-35.0) g/dl RDW 12.3 (11.0-16.0) % Plt Count 244 (160-400) X10*3/uL MPV 10.4 (9.4-12.3) fL Absolute Nucleated RBC 0.000 (0.0-0.012) X10*3/uL Nucleated RBC % (auto) 0.0 (0.0-0.2) /100WBC Sodium 140 (135-145) mmol/L Potassium 3.8 (3.3-5.1) mmol/L Chloride 106 (96-108) mmol/L Carbon Dioxide 23 (22-29) mmol/L Anion Gap 15 (12-20) BUN 15 (9-16) mg/dL Creatinine 0.81 (0.5-1.4) mg/dL Estim Creat Clear Calc 67.2 Estimated GFR > 60 Random Glucose 99 (60-115) mg/dL Calcium 9.4 (8.4-10.2) mg/dL Total Bilirubin 0.3 (0.0-1.0) mg/dL AST 22 (5-31) U/L ALT 21 (0-31) U/L Alkaline Phosphatase 67 (39-117) U/L Troponin I High Sens < 2.7 (<3.5-17.0) ng/L Total Protein 7.4 (6.5-8.0) g/dL Albumin 4.5 (3.5-5.0) g/dL TSH 3.83 (0.32-4.0) uIU/mL Beta HCG, Quant < 2 mIU/mL Independent Interpretation I performed an independent interpretation of an: EKG Critical Care Time Critical Care Time Critical Care Time: Yes Total Critical Care Time: 35 Attestation: I have personally provided critical care time. Time includes review of lab data, radiology results, discussion with consultants, and monitoring for potential decompensation. Intervention performed as documented. Discharge Plan Discharge Clinical Impression: Palpitations Patient Disposition: Home, Self-Care Instructions: Heart Palpitations (ED) Additional Instructions: Please follow-up with your primary care physician tomorrow. If you have any worsening or new symptoms, please return to the emergency room or call 911 Prescriptions: No Action No Known Home Meds Referrals: Freddie Alford MD [Physician, Cardiology] Print Language: Wallisian
[2025-04-30 03:11] VITALS: BP 115/77; PULSE 78; RESP 16; TEMP 36.9; O2SAT 96
== END 2025-04-30 03:12 | disposition home or self-care (01) ==
PROVIDERS: Emergency Provider Emergency Medicine; PCP Nurse Practitioner Family
DX: R00.2 Palpitations (principal); R06.02 Shortness of breath
CPT/HCPCS: 36415; 80053; 84443; 84484; 84702; 85027; 93005; 99283

== ENCOUNTER → 2025-04-29 23:36 | Outpatient (BNV) | payer MEDICARE, SELFPAY | PROVIDERS: Emergency Provider Emergency Medicine; PCP Nurse Practitioner Family; Visit Provider Internal Medicine Cardiovascular Disease | DX: R00.2 Palpitations (principal) | CPT/HCPCS: 93010 ==

== ENCOUNTER → 2025-05-06 07:40 | Outpatient (REF) | payer MEDICARE, SELFPAY ==
--- OUTSIDE RECORDS SUMMARY | 2025-05-04 15:45 | XMS_ITS | Encounter Summary ---
Author Organization [employer] [facility] Address [address] [place] [address] [address] [place] [address] Care Team Providers Care Supervisor Sound Technician Name Role Phone Aundrea Larson NP Primary Care Provider [phone] Reason for Referral * Cardiology (Urgent) - Authorized Specialty Diagnoses / Procedures Referred By Shereen teran Referred To Contact Cardiology Diagnoses Palpitations Procedures Holter monitor - 24 hour Aundrea Larson NP [address] [place] [address] Phone: tel: fax: [address] [phone] Phone: tel: fax: Referral ID Status Reason Start Date Expiration Date V isits Requested Visits Authorized [id number] Authorized 05/04/2025 05/04/2026 1 1 * Consultation (Urgent) - Authorized Specialty Diagnoses / Procedures Referred By Shereen teran Referred To Contact Cardiology Diagnoses Palpitations Aundrea Larson NP [address] [place] [address] Phone: tel: fax: [address] [phone] Phone: tel: fax: Referral ID Status Reason Start Date Expiration Date Visits Requested Visits Authorized [id number] Authorized Specialty Services Required 05/04/2026 1 1 Encounter Details Date Type Department Care Team (Late st Contact Info) Description 05/04/2025 3:45 PM EST Office Visit [facility] MED[facility]INE [address] [place] [address] Aundrea Larson NP [address] [place] [address] Palpitations (Primary Dx) Social History Tobacco Use Types Packs/Day Years Used Date Smoking Tobacco: Former Cigarettes 1 33 1 98 - 2017 Smokeless Tobacco: Never Comments:Started smoking [...] AM EDT documented as of this encounter Last Filed Vital Signs Vital Sign Reading Time Taken Comments Blood Pressure 110/84 05/04/2025 3:55 PM EST Pulse 95 05/04/2025 3:55 PM EST Temperature 36.7 C (98 F) 05/04/2025 3:55 PM EST Respiratory Rate 23 05/04/2025 3:55 PM EST Oxygen Saturation 99% 05/04/2025 3:55 PM EST Inhaled Oxygen Concentration - - Weight 62.8 kg (138 lb 6.4 oz) 05/04/2025 3:55 P M EST Height 157.5 cm (5' 2 ) 05/04/2025 3:55 PM EST Body Mass Index 25.31 05/04/2025 3:55 PM EST documented in this encounter Progress Notes * Aundrea Larson NP - 05/04/2025 3:45 PM EST Doreen Fartun, 50-year-old female - History of palpitations ongoing, described as heart racing, occurring a few times daily - Associated symptoms include shortness of breath, chest pain described as aching and squeezing, lasting a few minutes, resolved with deep breathing, no radiation - Most recent episode of chest pain occurred while lying down, resolved after a few minutes - Reports lightheadedness with episodes - Family history of atrial fibrillation and pacemaker placement (mother, grandmother, aunt) - Recent emergency room visit for these symptoms; heart and labs reported as unremarkable at that time - Mother checked pulse during episode, noted irregularity - Denies pain radiating elsewhere Pt was seen at [facility] er 04/30/25 for palpitations. Tsh, cmp triponins hcg and cbc all wnl My interpretation of EKG: Normal sinus rhythm, heart rate 77, no ST segment depression or elevation, no T-wave inversion, QTC 454 My interpretation of labs, hematology within normal limits, chemistry no acute abnormality. TSH within normal limits, hCG negative Patient has been on the monitor during her ED visit, no arrhythmias have been detected. I discussed with the patient that the best neck is step would be a Holter monitor evaluation through her primary care physician's or Cardiology. Patient agrees with plan. At this time, patient is stable, asymptomatic Differential Diagnosis Differential Diagnoses: The differential diagnosis associated with the presentation includes (PVCs, hypothyroidism, atrial fibrillation, atrial flutter, anxiety) Admission/Observation Consideration of admission/observation: Escalation of care including admission/observation considered (Given patient's age and symptoms, observation was considered) Lab Data MDM Lab Attestation statement: I reviewed the patient's lab results. Medical History[1] Allergies[2] Review of Systems Constitutional: Negative for activity change and appetite change. Respiratory: Positive for chest tightness. Neurological: Positive for light-headedness. BP 110/84 (BP Location: Left arm, Patient Position: Sitting, BP Cuff Size: Adult) Pulse 95 Temp98 ??F (36.7 ??C) (Oral) Resp 23 Ht 5' 2 (1.575 m) Wt 138 lb 6.4 oz (62.8 kg) SpO2 99% BMI 25.31 kg/m?? Physical Exam Vitals reviewed. HENT: Head: Normocephalic and atraumatic. Nose: Nose normal. Eyes: Conjunctiva/sclera: Conjunctivae normal. Cardiovascular: Rate and Rhythm: Normal rate and regular rhythm. Pulmonary: Effort: Pulmonary effort is normal. Breath sounds: Normal breath sounds. Musculoskeletal: Cervical back: Normal range of motion and neck supple. Neurological: General: No focal deficit present. Mental Status: She is alert. Results: Orders Only on 04/30/2025 Component Date Value Ref Range Status White Blood Count 04/30/2025 10.0 4.8 - 10.8 X10*3/uL Final Red Blood Count 04/30/2025 4.47 4.20 - 5.50 X10*6/uL Final Hemoglobin 04/30/2025 13.4 12.0 - 16.0 g/dl Final Hematocrit 04/30/2025 39.3 37.0 - 47.0 % Final Mean Corpuscular Volume 04/30/2025 87.9 80.0 - 98.0 fL Final Mean Corpuscular Hemoglobin 04/30/2025 30.0 27.0 - 33.0 pg Final Mean Corpuscular HGB Conc 04/30/2025 34.1 31.0 - 35.0 g/dl Final Red Cell Distribution Width 04/30/2025 12.3 11.0 - 16.0 % Final Platelet Count 04/30/2025 244 160 - 400 X10*3/uL Final Mean Platelet Volume 04/30/2025 10.4 9.4 - 12.3 fL Final NRBC Pct Auto 04/30/2025 0.0 0.0 - 0.2 /100WBC Final NRBC Abs Auto 04/30/2025 0.000 0.0 - 0.012 X10*3/uL Final Sodium 04/30/2025 140 135 - 145 mmol/L Final Potassium 04/30/2025 3.8 3.3 - 5.1 mmol/L Final Chloride 04/30/2025 106 96 - 108 mmol/L Final Carbon Dioxide 04/30/2025 23 22 - 29 mmol/L Final Anion Gap 04/30/2025 15 12 - 20 Final Urea Nitrogen (BUN) 04/30/2025 15 9 - 16 mg/dL Final Creatinine, Serum 04/30/2025 0.81 0.5 - 1.4 mg/dL Final Creatinine Clr Calc Pharmacy 04/30/2025 67.2 Final Provided height and weight: 157.48 cm,58.967 kg.eGFR (calculated from the MDRD study equation) and eCrCl(calculated from the Cockcroft-Gault equation) are based ondifferent parameters and may not yield comparable results.If eCrCl result is absurd, please check patient'sheight/weight. Estimated Glomerular Filt Rate 04/30/2025 >60 Final Chronic Kidney Disease: Estimated GFR < 60 mL/min/1.95q3Amhanx Kidney Disease: Estimated GFR < 15 mL/min/1.73m2 Glucose 04/30/2025 99 60 - 115 mg/dL Final Calcium 04/30/2025 9.4 8.4 - 10.2 mg/dL Final Bilirubin, Total 04/30/2025 0.3 0.0 - 1.0 mg/dL Final Aspartate Amino Transferase 04/30/2025 22 5 - 31 U/L Final Alanine Aminotransferase 04/30/2025 21 0 - 31 U/L Final Total Protein 04/30/2025 7.4 6.5 - 8.0 g/dL Final Albumin Level 04/30/2025 4.5 3.5 - 5.0 g/dL Final Alkaline Phosphatase 04/30/2025 67 39 - 117 U/L Final TROPONIN I HIGH SENSITIVITY 04/30/2025 <2.7 <3.5 - 17.0 ng/L Final The [facility] high sensitivity Troponin-I results should beused in conjunction with other diagnostic information suchas ECG, clinical observations and information, and patientsymptoms to aid in the diagnosis of [place]. TSH reflex Free T4 04/30/2025 3.83 0.32 - 4.0 uIU/mL Final HCG Quantitative 04/30/2025 <2 mIU/mL Final Weeks post LMP Approximate hCG(Last Menstrual Period) Range (mIU/ml)3 - 4 weeks 9 - 1304 - 5 weeks 75 - 2,6005 - 6 weeks 850 - 20,8006 - 7 weeks 4000 - 100,2007 - 12 weeks 11,500 - 289,60891 - 16 weeks 18,300 - 137,67825 - 29 weeks (2nd trimester) 1,400 - 53,91092 - 41 weeks (3rd trimester) 940 - 60,000The [facility] B- hCG assay is used for the early detection ofpregnancy; it cannot be used to diagnose any conditionunrelated to . If a B-hCG level is not supportedby the clinical evidence, results should be confirmed by analternative method (qualitative urine hCG, for example). Assessment & Plan Palpitations Orders: Referral to Cardiology; Future Holter monitor - 24 hour; Future Assessment & Plan Palpitations: - Palpitations with associated chest pain, dyspnea, and lightheadedness. Differential includes supraventricular tachycardia (SVT), atrial fibrillation (Afib), atrial or ventricular premature contractions (APAC/APVC), or other arrhythmia. No structural heart disease identified on prior evaluation. Di agnosis pending ambulatory cardiac monitoring. - Stat referral to cardiology. Ordered 24-hour Holter monitor to assess for arrhythmia. Placeholderfollow-up visit scheduled in 2-3 months, to be canceled if ongoing care is established with cardiology. Advised to minimize caffeine and stress, and to continue deep breathing techniques. Instructed to seek real-time evaluation if symptoms worsen or feel different. Appointments - Cardiology visit on June 10, 2025 - Holter monitor placement at [facility] as soon as possible - Follow-up visit in 2 to 3 months for palpitations Current Medications[3] This note was drafted using Ambient (AI) technology. The patient/patient's guardian has been informed and has consented to the use of this technology: Yes [1] No past medical history on file. [2] No Known Allergies [3] Current Outpatient Medications: hydrocortisone 2.5 % cream, Apply topically 2 times daily., Disp: 60 g, Rfl: 1 ondansetron (Zofran) 4 MG tablet, TAKE 1 TABLET BY MOUTH EVERY 6-8 HOURS NEEDED FOR NAUSEA, Disp: , Rfl: ondansetron ODT (Zofran-ODT) 4 MG disintegrating tablet, DISSOLVE 1 TABLET ON THE TONGUE EVERY 6 TO8 HOURS NEEDED FOR NAUSEA, Disp: , Rfl: varenicline (Chantix) 1 MG tablet, Take 1 tablet (1 mg) by mouth 2 times daily. Take with full glass of water., Disp: 120 tablet, Rfl: 2 documented in this encounter Miscellaneous Notes * Assessment & Plan Note - Aundrea Larson NP - 05/04/2025 3:45 PM ESTAssociated Problem(s): Palpitations Orders: Referral to Cardiology; Future Holter monitor - 24 hour; Future documented in this encounter Plan of Treatment Upcoming Encounters Date Type Department Care Team (Late st Contact Info) Description 08/03/2025 9:00 AM EDT Office Visit [facility] [address] [place] [address] Name, MD Juliocesar [address] [place] [address] Scheduled Orders Name Type Priority Associated Diagnoses Orde r Schedule Holter monitor - 24 hour Cardiac Services Urgent Palpitations Expected: 05/04/2025 (Approximate), Expires: 05/04/2027 Scheduled Referrals Name Type Priority Associated Diagnoses Order Schedule Referral to Cardiology Outpatient Referral Urgent Palpitations Expected: 05/04/2025 (Approximate), Expires: 05/04/2026 documented as of this encounter Visit Diagnoses Diagnosis Palpitations- Primary documented in this encounter Additional Health Concerns Assessment Noted Time PHQ-9 Depression Total Score: 8 01/13/20 25 11:29 AM EDT documented as of this encounter Care Teams Supervisor Sound Technician Relationship Specialty Start Date End Date Aundrea Larson NP [address] [place] [address] PCP - General Family Medicine 09/25/24 documented as of this encounter
--- OUTSIDE RECORDS SUMMARY | 2025-05-06 07:44 | XMS_ITS | Encounter Summary ---
Author Organization [employer] Address [address] [place] [address] [address] [place] [address] Care Team Providers Care Director Of Application Development Name Role Phone Em Lemus MD Primary Care Pro vider Aundrea Larson NP Primary Care Provider [phone] Reason for Visit * Reason Onset Date Comments Transfer Patient 07/17/2024 Encounter Details Date Type Department Care Team ([facility] st Contact Info) Description 07/17/2024 Telephone [facility] MEDICINE [address] [place] [address] Em Lemus MD [address] [place] [address] Transfer Patient Social History Tobacco Use Types [...] Miscellaneous Notes * Telephone Encounter - Eloy hCeek RN - 07/23/2024 3:38 PM EST TC [...] Patient informed that transfer is approved and brand inspector will send message to front counter attendant to contact her with transfer patient appt. * Telephone Encounter - Kodi Kelsey - 07/17/2024 2:15 PM EST Tc from pt requesting to switch PCP due to her feeling uncomfortable in past appt. Pt prefers female provider not male provider. documented in this encounter Plan of Treatment Upcoming Encounters Date Type Department Care Team ([facility] st Contact Info) Description 08/03/2025 9:00 AM EDT Office Visit [facility] MEDICINE [address] [place] [address] [phone] NameJuliocesar MD [address] [place] [phone] documented as of this encounter Visit Diagnoses Not on filedocumented in this encounter Additional Health Concerns Assessment Noted Time PHQ-9 Depression Total Score: 7 08/13/19 24 9:26 AM EDT documented as of this encounter Care Teams Director Of Application Development Relationship Specialty Start Date End Date Em Lemus MD [address] [place] [id number] PCP - General Internal Medicine 08/13/23 09/24/24 Aundrea Larson NP [address] [place] [id number] PCP - General Family Medicine 09/25/24 documented as of this encounter
--- OUTSIDE RECORDS SUMMARY | 2025-05-06 07:44 | XMS_ITS | Encounter Summary ---
Author Organization [employer] Address [address] [facility] [address] [place] [address] Care Team Providers Care Acid Extractor Name Role Phone Aundrea Larson KARL Primary Care Provider Encounter Details Date Type Department Care Team (Latest Contact Info) Description 05/04/2025 Travel Social History Tobacco Use Types Packs/Day Years Used Date Smoking Tobacco: Former Cigarettes 1 33 1 2017 Smokeless Tobacco: Never Comments:Started smoking 14 [...] as of this encounter Plan of Treatment Upcoming Encounters Date Type Department Care Team (Late st Contact Info) Description 08/03/2025 9:00 AM EDT Office Visit [facility] MEDICINE [address] [place] [address] Name, MD Juliocesar [address] [place] [address] documented as of this encounter Visit Diagnoses Not on filedocumented in this encounter Additional Health Concerns Assessment Noted Time PHQ-9 Depression Total Score: 8 01/13/20 25 11:29 AM EDT documented as of this encounter Care Teams Acid Extractor Relationship Specialty Start Date End Date Aundrea Larson NP [address] [place] [id number] PCP - General Family Medicine 09/25/24 documented as of this encounter
--- OUTSIDE RECORDS SUMMARY | 2025-05-06 07:44 | XMS_ITS | Clinical Summary ---
Author Organization [employer] Address [address] [place] [address] 7t [place] [address] Care Team Providers Care Nuclear Medicine Technologist Name Role Phone Marsha Aundrea KARL Primary Care Provider [phone] Allergies No known active allergies Medications ondansetron [...] Active Problems Problem Noted Date Diagnosed Date Palpitations 05/04/2025 Assessment & Plan (05/04/2025 4:18 PM EST): Orders: Referral to Cardiology; Future Holter monitor - 24 hour; Future Dietary counseling 01/12/2025 Assessment & Plan (01/12/2025 [...] Encounters Date Type Department Care Team Description 05/04/2025 3:45 PM EST Office Visit [facility] MEDICINE [address] [place] [address] Aundrea Larson NP Palpitations (Primary Dx) 05/04/2025 Travel 04/30/2025 Telephone [facility] MEDICINE [address] [place] [phone] Aundrea Larson NP ER Follow-up 04/30/2025 Orders Only GENERIC EXTERNAL DATA DEPARTMENT Provider, Generic External Data 04/13/2025 Telephone [facility] MEDICINE [address] [place] [phone] Aundrea Larson NP Referral 02/12/2025 Orders Only [facility] MEDICINE [address] [place] [phone] Aundrea Larson NP Tobacco use disorder (Primary Dx) from Last [...] 1 985 - 2017 Smokeless Tobacco: Never Tobacco Cessation:Counseling [...] Mass Index 25.31 05/04/2025 3:55 PM EST Plan of Treatment Upcoming Encounters Date Type Department Care Team (Late st Contact Info) Description 08/03/2025 9:00 AM EDT Office Visit [facility] [address] [facility] [place] [address] Name, MD Juliocesar [address] [facility] [place] [address] Health Maintenance Due Date Last Done Comments CT Colonography 1975 Colonoscopy 1975 Colorectal Cancer Screening 1975 FIT DNA/Cologuard 1977 FIT 1977 FOBT 1975 Sigmoidoscopy 1975 Family Planning (PISQ) 02/25/1992 Dental Oral Exam 01/05/2022 07/07/2021 Dental Prophylaxis 01/05/2022 07/07/2021 Dental X-Ray: Bitewings 01/16/2024 01/15/20 23, 07/07/2021, 06/09/2021 Dental X-Ray: Full Mouth 07/08/2024 07/07/2021 COVID-19 Vaccine ( season) 2025 08/13/2023, 05/24/2021, 08/24/2020 Alcohol/Substance Use Screening 01/12/2026 01/12/2025 Depression Screening [...] Hepatitis B Vaccines Completed 05/18/2024, 12/16/2023, 11/15/2023 Influenza Vaccine Completed 02/11/2025, , 03/12/2020, Additional history exists HIB Vaccines Aged Out No longer eligi [...] Procedure Name Priority Date/Time Associated Diagnosis Comments HCG, TOTAL, QN Routine 04/30/2025 12:06 AM EST TSH W/REFLEX TO FT4 Routine 04/30/2025 1 2:06 AM EST HIGH SENSITIVITY TROPONIN I Routine 04/30/2025 12:06 AM EST COMPREHENSIVE METABOLIC PANEL Routine 04/30/2025 12:06 AM EST CBC Routine 04/30/2025 12:06 AM EST HM PAP/HPV Routine 12/10/2023 6:42 PM EDT [...] Recently Relevant to Health Maintenance Results * High Sensitivity Troponin I (04/30/2025 12:06 AM EST) Pathologist [facility] [place] TROPONIN I HIGH SENSITIVITY <2.7 <3.5 - 17.0 ng/L [facility] Comment:The Lanier high sens itivity Troponin-I results should beused in conjunction with other diagnostic information suchas ECG, clinical observations and information, and patientsymptoms to aid in the diagnosis of NE. 04/30/2025 12:0 6 AM EST 04/30/2025 12:10 AM EST us Generic External Data Provider LAB BLOOD ORDERAB LES Final Result [facility] [address] [place] [phone] * TSH with Reflex to Free T4 (04/30/2025 12:06 AM EST) Pathologist [facility] [place] TSH reflex Free T4 3.83 0.32 - 4.0 uIU/mL [facility] 04/30/2025 12:0 6 AM EST 04/30/2025 12:10 AM EST us Generic External Data Provider LAB BLOOD ORDERAB LES Final Result Performing Organization Address City/[facility]/ZIP Co de Phone Number [facility] [address] [place] [address] [phone] * CBC (04/30/2025 12:06 AM EST) White Blood Count 10.0 4.8 - 10.8 X10*3/uL [facility] Red Blood Count 4.47 4.20 - 5.50 X10*6/uL [facility] Hemoglobin 13.4 12.0 - 16.0 g/dl [facility] Hematocrit 39.3 37.0 - 47.0 % [facility] Mean Corpuscular Volume 87.9 80.0 - 98.0 fL [facility] Mean Corpuscular Hemoglobin 30.0 27.0 - 33.0 pg [facility] Mean Corpuscular HGB Conc 34.1 31.0 - 35.0 g/dl [facility] Red Cell Distribution Width 12.3 11.0 - 16.0 % [facility] Platelet Count 244 160 - 400 X10*3/uL [facility] Mean Platelet Volume 10.4 9.4 - 12.3 fL [facility] NRBC Pct Auto 0.0 0.0 - 0.2 /100WBC [facility] NRBC Abs Auto 0.000 0.0 - 0.012 X10*3/uL [facility] 04/30/2025 12:0 6 AM EST 04/30/2025 12:10 AM EST us Generic External Data Provider LAB BLOOD ORDERAB LES Final Result Performing Organization Address [facility]/ZIP Co de Phone Number [facility] [address] [place] [phone] * hCG, Total, Quantitative (04/30/2025 12:06 AM EST) HCG Quantitative <2 mIU/mL [facility] Comment:Weeks post LMP Appro ximate hCG(Last Menstrual Period) Range (mIU/ml)3 - 4 weeks 9 - 1304 - 5 weeks 75 - 2,6005 - 6 weeks 850 - 20,8006 - 7 weeks 4000 - 100,2007 - 12 weeks 11,500 - 289,18968 - 16 weeks 18,300 - 137,73306 - 29 weeks (2nd trimester) 1,400 - 53,06211 - 41 weeks (3rd trimester) 940 - 60,000The Lanier B- hCG assay is used for the early detection ofpregnancy; it cannot be used to diagnose any conditionunrelated to . If a B-hCG level is not supportedby the clinical evidence, results should be confirmed by analternative method (qualitative urine hCG, for example). 04/30/2025 12:0 6 AM EST 04/30/2025 12:10 AM EST us Generic External Data Provider LAB BLOOD ORDERAB LES Final Result [facility] [address] [place] [address] [phone] * Comprehensive Metabolic Panel (04/30/2025 12:06 AM EST) Sodium 140 135 - 145 mmol/L [facility] Potassium 3.8 3.3 - 5.1 mmol/L [facility] Chloride 106 96 - 108 mmol/L [facility] Carbon Dioxide 23 22 - 29 mmol/L [facility] Anion Gap 15 12 - 20 [facility] Urea Nitrogen (BUN) 15 9 - 16 mg/dL [facility] Creatinine, Serum 0.81 0.5 - 1.4 mg/dL [facility] Creatinine Clr Calc Pharmacy 67.2 [facility] Comment:Provided height and weight: 157.48 cm,58.967 kg.eGFR (calculated from the MDRD study equation) and eCrCl(calculated from the Cockcroft-Gault equation) are based ondifferent parameters and may not yield comparable results.If eCrCl result is absurd, please check patient'sheight/weight. Estimated Glomerular Filt Rate >60 [facility] Comment:Chronic Kidney Disea se: Estimated GFR < 60 mL/min/1.39b3Tvoigc Kidney Disease: Estimated GFR < 15 mL/min/1.73m2 Glucose 99 60 - 115 mg/dL [facility] Calcium 9.4 8.4 - 10.2 mg/dL [facility] Bilirubin, Total 0.3 0.0 - 1.0 mg/dL [facility] Aspartate Amino Transferase 22 5 - 31 U/L [facility] Alanine Aminotransferase 21 0 - 31 U/L [facility] Total Protein 7.4 6.5 - 8.0 g/dL [facility] Albumin Level 4.5 3.5 - 5.0 g/dL [facility] Alkaline Phosphatase 67 39 - 117 U/L [facility] 04/30/2025 12:0 6 AM EST 04/30/2025 12:10 AM EST us Generic External Data Provider LAB BLOOD ORDERAB LES Final Result Performing Organization Address City/[facility]/ZIP Co de Phone Number [facility] [address] [place] [phone] * HM PAP/HPV (12/10/2023 6:42 PM EDT) Only the most recent of2 resultswithin the time period is included. Historical Provider HEALTH MAINTENANCE Final Result * Hepatitis C Antibody with Reflex to HCV, RNA, Quantitative, Real-Time PCR (08/16/2023 8:50 AM EDT) Hepatitis C Antibody Nonreactive Nonreactive [facility] Comment:Antibodies to HCV no t detected; does not exclude early acuteHCV infection. Blood Venous blood specimen / Unknown 08/16/2023 8:50 AM EDT 08/16/2023 11:19 AM EDT Em Gann MD LAB BLOOD ORDERAB LES Final Result [facility] [address] [place] [address] [phone] * HIV-1/2 Antigen and Antibodies, Fourth Generation, with Reflexes (08/16/2023 8:50 AM EDT) HIV AB/AG Nonreactive Nonreactive [facility] Comment:HIV-1 p24 Ag and/or HIV-1/HIV-2 Ab not detected.A test result that is nonreactive does not exclude thepossibility of exposure to or infection with HIV-1 and/orHIV-2. Nonreactive results in this assay for individualswith prior exposure to HIV-1 and/or HIV-2 may be due toantigen and antibody levels that are below the limit ofdetection of this assay.The Dizzion HIV Ag/Ab Combo assay result andsupplemental assay results should be interpreted inconjunction with the patient's clinical presentation,history and other laboratory results. If the results areinconsistent with clinical evidence, additional testing issuggested to confirm the result. Blood Venous blood specimen / Unknown 08/16/2023 8:50 AM EDT 08/16/2023 11:19 AM EDT us Em Gann MD LAB BLOOD ORDERAB LES Final Result Performing Organization Address [facility] Co de Phone Number [facility] [address] [place] [address] [phone] * BI US Breast Complete Right (01/17/2023 3:20 PM EDT) Anatomical Region Laterality Modality Breast Right Ultrasound 01/17/2023 3:20 PM EDT Narrative 01/17/2023 4:24 PM EDT [facility] [address] [place] [address] Ultrasound Report Signed Patient: Doreen Willoughby MR#: [id number] 5 : 1975 Acct:[id number] Age/Sex: 47 / F ADM Date: 01/17/23 Loc: HO.MAMMO Attending Dr: Skye Tao INSURANCE AND FINANCIAL SERVICES AGENT Ordering Physician: Skye Tao INSURANCE AND FINANCIAL SERVICES AGENT Date of Service: 01/17/23 Procedure(s): US breast RT limited mamm only Accession Number(s): [id number] cc: Skye Tao INSURANCE AND FINANCIAL SERVICES AGENT EXAMINATION: MM DIAGNOSTIC DIGITAL BREAST TOMOSYNTHESIS, RIGHT [...] in OV> 01/17/23 1621 DD/ 1520 TD/TT: Pourer Bull Ladle: Procedure Note Donotuseinterpreter, Image - 01/31/2023 Alli [facility] [address] [place] [address] Ultrasound Report Signed Patient: Mariia Willoguhby#: [id number] 5 : 1975Acct:[id number] Age/Sex: 47 / FADM Date: 01/17/23 Loc: HO.MAMMO Attending Dr: Skye Tao INSURANCE AND FINANCIAL SERVICES AGENT Ordering Physician: Skye Tao INSURANCE AND FINANCIAL SERVICES AGENT Date of Service: 01/17/23 Procedure(s): US breast RT limited mamm only Accession Number(s): [id number] cc: Skye Tao INSURANCE AND FINANCIAL SERVICES AGENT EXAMINATION: MM DIAGNOSTIC DIGITAL BREAST TOMOSYNTHESIS, RIGHT [...] in OV> 01/17/23 1621 DD/ 1520 TD/TT: Pourer Bull Ladle: Skye Tao INSURANCE AND FINANCIAL SERVICES AGENT IMUNM [facility] PROCEDURES Edited R esult - Final from Last 3 Months or Most Recently Relevant to Health Maintenance Insurance [facility] Care Teams Nuclear Medicine Technologist Relationship Specialty Start Date End Date Aundrea Larson NP [address] [place] [phone] PCP - General Family Medicine 09/25/24
--- OUTSIDE RECORDS SUMMARY | 2025-05-06 07:44 | XMS_ITS | Encounter Summary ---
Author Organization [employer] Address [address] 7t [place] [address] Care Team Providers Care Hand Riveter Name Role Phone Em Lemus MD Primary Care Pro vider Aundrea Larson NP Primary Care Provider [phone] Encounter Details Date Type Department Care Team (Late st Contact Info) Description 05/10/2024 Orders Only [facility] MEDICINE [address] [place] [address] Provider, MD Myesha Social History Tobacco Use [...] Description 08/03/2025 9:00 AM EDT Office Visit [facility] MEDICINE [address] [place] [phone] Name, MD Juliocesar [address] [place] [phone] documented as of this encounter Procedures Procedure [...] documented as of this encounter Care Teams Hand Riveter Relationship Specialty Start Date End Date Em Lemus MD [address] [place] [address] [phone] PCP - General Internal Medicine 08/13/23 09/24/24 Aundrea Larson NP [address] [place] [address] [phone] PCP - General Family Medicine 09/25/24 documented as of this encounter
--- OUTSIDE RECORDS SUMMARY | 2025-05-06 07:44 | XMS_ITS | Encounter Summary ---
Author Organization [employer] Address [address] [place] [address] 7t [place] [address] Care Team Providers Care Board Machine Set Up Operator Name Role Phone Skye Tao RESIDENTIAL INSTALLER Primary Care Provider Heather Deborah Moran RESIDENTIAL INSTALLER Primary Care Provider [phone] Em Lemus MD Primary Care Pro vider Aundrea Larson NP Primary Care Provider [phone] Reason for Visit * Reason Comments Med Refill Encounter Details Date Type Department Care Team (Late Contact Info) Description 10/19/2022 Refill [facility] MEDICINE [address] [place] [address] Skye Tao FNP Weight gain Social History [...] Description 08/03/2025 9:00 AM EDT Office Visit [facility] MEDICINE [address] [place] [address] Name, MD Juliocesar [address] [place] [address] documented as of this encounter Visit Diagnoses Diagnosis Weight gain Other symptoms concerning nutrition, metabolism, and development documented in this encounter Additional Health Concerns Assessment Noted Time PHQ-9 Depression Total Score: 13 023 2:51 PM EDT documented as of this encounter Care Teams Board Machine Set Up Operator Relationship Specialty Start Date End Date Skye Tao FNP PCP - General Family Medicine 06/28/22 01/14/23 Deborah Crews FNP [address] [place] [phone] PCP - General Family Medicine 01/15/23 08/12/23 Em Lemus MD [address] [place] [address] PCP - General Internal Medicine 08/13/23 09/24/24 Aundrea Larson NP [address] [place] [address] PCP - General Family Medicine 09/25/24 documented as of this encounter
--- OUTSIDE RECORDS SUMMARY | 2025-05-06 07:45 | XMS_ITS | Encounter Summary ---
Author Organization [facility] Address [address] [facility] [address] [place] [phone] Phone Care Team Providers Care Strap Cutting Machine Operator Name Role Phone Pcp, Unknown Primary Care Provider Unavailabl e Encounter Details Date Type Department Care Team (Late st Contact Info) Description 12/10/2023 Procedure Pass [facility], [address] [phone] Social History Tobacco Use Types Packs/Day Years [...] on filedocumented in this encounter Care Teams Strap Cutting Machine Operator Relationship Specialty Start Date End Date Pcp, Unknown PCP - General 09/21/22 documented as of this encounter Additional Source Comments The information contained in this document represents components of the legal health record. It is not the complete legal health record.[facility]
--- OUTSIDE RECORDS SUMMARY | 2025-05-06 07:45 | XMS_ITS | Encounter Summary ---
Author Organization [employer] Address [address] [place] [address] 7t [place] [address] Care Team Providers Care Hand Cementer Name Role Phone Skye Tao STEAM LOCOMOTIVE FIRER/FIREMAN Primary Care Provider Heather Deborah Moran STEAM LOCOMOTIVE FIRER/FIREMAN Primary Care Provider [phone] Em Lemus MD Primary Care Pro vider Aundrea Larson NP Primary Care Provider [phone] Reason for Visit * Reason Comments Med Refill Encounter Details Date Type Department Care Team (Late Contact Info) Description 11/22/2022 Refill [facility] MEDICINE [address] [place] [address] Skye Tao FNP Weight gain Social History [...] Description 08/03/2025 9:00 AM EDT Office Visit [facility] MEDICINE [address] [place] [address] Name, MD Juliocesar [address] [place] [address] documented as of this encounter Visit Diagnoses Diagnosis Weight gain Other symptoms concerning nutrition, metabolism, and development documented in this encounter Additional Health Concerns Assessment Noted Time PHQ-9 Depression Total Score: 13 023 2:51 PM EDT documented as of this encounter Care Teams Hand Cementer Relationship Specialty Start Date End Date Skye Tao FNP PCP - General Family Medicine 06/28/22 01/14/23 Deborah Crews FNP [address] [place] [address] PCP - General Family Medicine 01/15/23 08/12/23 Em Lemus MD [address] [place] [phone] PCP - General Internal Medicine 08/13/23 09/24/24 Aundrea Larson NP [address] [place] [phone] PCP - General Family Medicine 09/25/24 documented as of this encounter
--- OUTSIDE RECORDS SUMMARY | 2025-05-06 07:45 | XMS_ITS | Encounter Summary ---
Author Organization [employer] Address [address] [place] [address] [address]t [place] [address] Care Team Providers Care Information Security Name Role Phone Skye Tao VENEER JOINTER OFFBEARER Primary Care Provider Heather Deborah Moran VENEER JOINTER OFFBEARER Primary Care Provider [phone] Em Lemus MD Primary Care Pro vider Aundrea Larson NP Primary Care Provider Reason for Visit * Reason Comments Med Refill Encounter Details Date Type Department Care Team (Late Contact Info) Description 11/16/2022 Refill [facility] MEDICINE [address] [place] [address] Skye Tao FNP Weight gain Social History [...] Description 08/03/2025 9:00 AM EDT Office Visit [facility] MEDICINE [address] [place] [address] Name, MD Juliocesar [address] [place] [address] documented as of this encounter Visit Diagnoses Diagnosis Weight gain Other symptoms concerning nutrition, metabolism, and development documented in this encounter Additional Health Concerns Assessment Noted Time PHQ-9 Depression Total Score: 13 023 2:51 PM EDT documented as of this encounter Care Teams Information Security Relationship Specialty Start Date End Date Skye Tao FNP PCP - General Family Medicine 06/28/22 01/14/23 Deborah Crews FNP [address] [place] [address] PCP - General Family Medicine 01/15/23 08/12/23 Em Lemus MD [address] [place] [address] PCP - General Internal Medicine 08/13/23 09/24/24 Aundrea Larson NP [address] [place] [address] PCP - General Family Medicine 09/25/24 documented as of this encounter
--- OUTSIDE RECORDS SUMMARY | 2025-05-06 07:45 | XMS_ITS | Encounter Summary ---
Author Organization [employer] Address [address] [facility] 7t [place] [address] Care Team Providers Care Four H Club Agent Name Role Phone Skye TaoP Primary Care Provider Heather Deborah Moran FOSTER PARENT Primary Care Provider [phone] Em Lemus MD Primary Care Pro vider Aundrea Larson NP Primary Care Provider [phone] Reason for Visit * Reason Onset Date Comments Medication Question 12/06/2022 Encounter Details Date Type Department Care Team ([facility] st Contact Info) Description 12/06/2022 Telephone [facility] MEDICINE [address] [place] [address] Skye Tao FNP Medication Question Social History [...] Description 08/03/2025 9:00 AM EDT Office Visit [facility] MEDICINE [address] [place] [address] Name, MD Juliocesar [address] [place] [address] documented as of this encounter Visit Diagnoses Not on filedocumented in this encounter Additional Health Concerns Assessment Noted Time PHQ-9 Depression Total Score: 13 023 2:51 PM EDT documented as of this encounter Care Teams Four H Club Agent Relationship Specialty Start Date End Date Skye Tao FNP PCP - General Family Medicine 06/28/22 01/14/23 Deborah Crews FNP [address] [place] [address] [phone] PCP - General Family Medicine 01/15/23 08/12/23 Em Lemus MD [address] [place] [address] [phone] PCP - General Internal Medicine 08/13/23 09/24/24 Aundrea Larson NP [address] [place] [address] [phone] PCP - General Family Medicine 09/25/24 documented as of this encounter
--- OUTSIDE RECORDS SUMMARY | 2025-05-06 07:46 | XMS_ITS | Encounter Summary ---
Author Organization [facility] Address [address] [facility] [address] [place] [phone] Phone Care Team Providers Care Residential Instructor Name Role Phone Kael Mejias MD Primary Care Provider Kael Mejias MD Primary Care Provider Kael Mejias MD Primary Care Provider [phone] Neelam Beasley MD, MPH Primary Care Provid er Pcp, Unknown Primary Care Provider Unavailabl e Encounter Details Date Type Department Care Team (Late st Contact Info) Description 01/21/2020 Procedure Pass [facility], [address] [address] Social History Tobacco Use Types Packs/Day Years [...] on filedocumented in this encounter Care Teams Residential Instructor Relationship Specialty Start Date End Date Kael Mejias MD [email or web address] PCP - General Family Medicine 06/17/17 01/25/20 Kael Mejias MD [email or web address] PCP - General Family Medicine 01/26/20 06/09/20 Kael Mejias MD [email or web address] PCP - General Family Medicine 06/10/20 02/22/22 Neelam Beasley MD, MPH [address] [place] [address] [email or web address] PCP - General Family Medicine 02/23/22 09/20/22 Pcp, Unknown PCP - General 09/21/22 documented as of this encounter Additional Source Comments The information contained in this document represents components of the legal health record. It is not the complete legal health record.[facility]
--- OUTSIDE RECORDS SUMMARY | 2025-05-06 07:46 | XMS_ITS | Encounter Summary ---
Author Organization [employer] Address [address] [place] [address] [address]t [place] [address] Care Team Providers Care Money Room Supervisor Name Role Phone Skye Tao Primary Care Provider Heather Deborah Moran Primary Care Provider [phone] Em Lemus MD Primary Care Pro vider Aundrea Larson NP Primary Care Provider [phone] Encounter Details Date Type Department Care Team (Latest Contact Info) Description 07/07/2021 Abstract [facility] CONVERSIONS Dental, Provider, DDS Social History [...] Description 08/03/2025 9:00 AM EDT Office Visit [facility] MEDICINE [address] [place] [address] Name, MD Juliocesar [address] [place] [address] documented as of this encounter Visit Diagnoses Not on filedocumented in this encounter Care Teams Money Room Supervisor Relationship Specialty Start Date End Date Skye Tao FNP PCP - General Family Medicine 06/28/22 01/14/23 Deborah Crews FNP [address] [place] [address] PCP - General Family Medicine 01/15/23 08/12/23 Em Lemus MD [address] [place] [address] PCP - General Internal Medicine 08/13/23 09/24/24 Aundrea Larson NP [address] [place] [address] PCP - General Family Medicine 09/25/24 documented as of this encounter
== END ==
LOC: HO.CARD 07:40
PROVIDERS: PCP Nurse Practitioner Family; Visit Provider Nurse Practitioner Family
DX: R00.2 Palpitations (principal)
CPT/HCPCS: 93225

== ENCOUNTER → 2025-05-06 07:45 | Outpatient (BNV) | payer MEDICARE, SELFPAY | PROVIDERS: PCP Nurse Practitioner Family; Visit Provider Internal Medicine Cardiovascular Disease | DX: R00.2 Palpitations (principal) | CPT/HCPCS: 93227 ==